=== PATIENT | female | born 1950 | race Caucasian/White ===

== ENCOUNTER 2017-07-30 17:41 | Emergency (ER) | payer MEDICARE, SELFPAY ==
[2017-07-30 17:42] VITALS: BP 160/88; PULSE 67; RESP 16; TEMP 36.6; O2SAT 96; BMI 22.8
[2017-07-30 17:59] VITALS: O2SAT 98
--- NOTE | 2017-07-30 18:09 | RAD_ITS ---
STUDY: X-RAY - LUMBAR SPINE REASON FOR EXAM: Female, 66 years old. Back pain after fall TECHNIQUE: 3 view(s) of the lumbar spine were obtained. COMPARISON: None FINDINGS: Normal lumbar lordosis. Slight dextrocurvature. There is a normal alignment of the vertebrae. Prominent degenerative disc disease at L4-5. Disc space height loss noted at L3-4. Prominent facet degenerative change from L3 through S1. The soft tissue structures are unremarkable. RAD/Lumbar Spine 2 or 3 Views IMPRESSION: Degenerative changes of the spine, as detailed above. Electronically Signed: Arun Traore DO at 18:33 EST Tel , Service support ,
--- NOTE | 2017-07-30 18:09 | RAD_ITS ---
STUDY: X-RAY - PELVIS REASON FOR EXAM: Female, 66 years old. Fall TECHNIQUE: One view of the pelvis was obtained. COMPARISON: None. FINDINGS: There is a non-specific bowel gas pattern. Normal visualized soft tissue structures. Normal bilateral iliac wings, sacroiliac joints and visualized sacrum. Normal visualized bilateral superior and inferior pubic rami. Normal pubic symphysis. Normal ischial tuberosities. Normal visualized right femoral head. Normal right acetabulum. Normal right hip joint. Normal visualized left femoral head. Normal left acetabulum. Normal left hip joint. RAD/Pelvis 1 or 2 Views IMPRESSION: Normal x-ray examination of the pelvis. Electronically Signed: Arun Traore DO at 18:35 EST Tel , Service support ,
--- NOTE | 2017-07-30 18:16 | RAD_ITS ---
STUDY: X-RAY - LEFT RADIUS AND ULNA REASON FOR EXAM: Female, 66 years old. Fall TECHNIQUE: 2 view(s) of the forearm. COMPARISON: None. FINDINGS: There is a subtle lucency in the distal radius which could represent small fracture versus unfused apophysis. Prominent degenerative change at the first carpometacarpal joint. Mild wrist soft tissue swelling RAD/Forearm 2 Views IMPRESSION: Possible small nondisplaced fracture of the distal radius with soft tissue swelling. Electronically Signed: Arun Traroe DO at 18:35 EST Tel , Service support ,
--- NOTE | 2017-07-30 19:15 | ED.DCSUM_ITS ---
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 Her states that she fell forward on the striking her nose but she maintains that she fell backwards striking her back. She also states that she had a very large mid forearm bruise on the left that was present when she fell but has now resolved. She states that her low buttock pain that she has now is chronic but this flared it up. She mentions no fewer than 5 times that she has severe fibromyalgia. She is in pain management. Physical Examination: Afebrile vital signs are stable Gen: Well-nourished well-developed Head: Normocephalic atraumatic Eyes: Perrl EOMI ENT: TMs clear no rhinorrhea moist mucous membranes Neck: Supple no lymphadenopathy no JVD nontender CVS: Regular rate rhythm no murmurs normal S1-S2 Respiratory: No distress clear to auscultation bilaterally chest nontender Abdomen: Soft nontender nondistended normal bowel sounds no masses Back: Tender to palpation over the lower lumbar sacral region. Extremity: I do not appreciate any visual outward signs of trauma involving the left arm. Patient reports tenderness to palpation over the mid forearm. She has normal pronation and supination. There are no breaks in the skin. Skin: Normal color no rash Neuro: alert orientated ?3 CN II-XII intact normal strength sensation reflexes gait cerebellar Test Results: Pelvis and LS-spine films did not demonstrate any acute fracture. Forearm films demonstrates a possible nondisplaced fracture of the distal radius. Emergency Department Course and Treatment: I reassessed the patient's forearm because the distal radius was not the site that she was complaining of pain of originally. When I asked specifically about the distal forearm she states yes it hurts and points to the ulna. When asked about the radial side she states yes she hurts there to. She then states that she cannot pronate and supinate like she did when she first came in. states that she seemed to be moving the forearm just fine when she initially fell as she was able to get up on her own. Patient states now she cannot pull up her own pants because of the wrist pain. I am not sure if this represents an actual fracture or not look clinically it is suspect. We will place her in a Velcro wrist splint and have her follow-up with her doctor in 7-10 days for repeat examination. She has oxycodone and anti-inflammatory medications at home. Impression: 1. Fall 2. Low back contusion 3. Left wrist sprain This note was generated with [employer] dictation software. It may contain incorrect words, spelling, and punctuation that were not noted in review of the chart prior to signing ED Disposition - Plan for ED Patient: Disposition: Home or Assisted Living Chief Complaint: Fall Instructions: ED Contusion Back, ED Mechanical Fall, ED Sprain Wrist Referrals: Maxwell Mabry DO [Primary Care Provider] - (in 10 days for repeat examination of wrist) Additional Instructions: The x-rays of your left wrist were inconclusive for radial fracture. Please wear the splint. Follow-up with your doctor in 10 days for repeat examination.
[2017-07-30 19:21] VITALS: BP 143/80; PULSE 62; RESP 16; O2SAT 95
== END 2017-07-30 19:21 | disposition home or self-care (01) ==
PROVIDERS: Emergency Provider Emergency Medicine; Family Provider Preventive Medicine Occupational Medicine; PCP Preventive Medicine Occupational Medicine
DX: S30.0XXA Contusion of lower back and pelvis, initial encounter (principal); S63.502A Unspecified sprain of left wrist, initial encounter; W07.XXXA Fall from chair, initial encounter; Y93.E9 Activity, other interior property and clothing maintenance; Y92.9 Unspecified place or not applicable; M79.7 Fibromyalgia; E78.00 Pure hypercholesterolemia, unspecified; E03.9 Hypothyroidism, unspecified; F32.9 Major depressive disorder, single episode, unspecified; Z79.899 Other long term (current) drug therapy; Z72.0 Tobacco use
CPT/HCPCS: 72100; 72170; 73090; 99283

== ENCOUNTER → 2017-09-03 12:17 | Outpatient (CLI) | payer MEDICARE, SELFPAY ==
--- NOTE | 2017-09-03 12:21 | HPBI_ITS ---
MAMMOGRAPHY - BILATERAL SCREENING REASON FOR EXAM: Female, 67 years old. Routine annual screening examination. PERTINENT HISTORY: Non-contributory. TECHNIQUE: Digital bilateral breast nicole (3D mammographic acquisition) in the CC and MLO projections. 2-D mediolateral oblique (MLO) and craniocaudad (CC) views of both breasts were obtained. CAD: Full Field Digital Mammography with Computer Added Detection was performed. COMPARISON: Comparison is made with prior examination to March 25, 2015 and March 24, 2013. FINDINGS: Breast Composition: The breasts are extremely dense, which lowers the sensitivity of mammography. There are no dominant masses or suspicious calcifications. No other significant abnormalities are identified. There has been no significant change since the prior study. HPBI/SCREENING MAMM (CAD), BILAT IMPRESSION: Stable bilateral screening mammogram. Yearly follow-up mammogram recommended. (A) ASSESSMENT CATEGORY: BIRADS Category 1: Negative. A letter regarding these results will be sent to the patient by the facility within 30 days. Approximately 10% of breast cancers are not detected by mammography. A normal mammogram should not delay biopsy of a clinically suspicious abnormality. [id number] Electronically Signed: Alexi Leslie MD at 14:00 EST Tel [phone], Service support ,
== END ==
PROVIDERS: Family Provider Preventive Medicine Occupational Medicine; PCP Preventive Medicine Occupational Medicine; Visit Provider Preventive Medicine Occupational Medicine
DX: Z12.31 Encounter for screening mammogram for malignant neoplasm of breast (principal)
CPT/HCPCS: 77063; 77067

== ENCOUNTER → 2019-08-15 14:08 | Outpatient (CLI) | payer MEDICARE, SELFPAY ==
--- NOTE | 2019-08-15 14:20 | BI_ITS ---
MAMMOGRAPHY - BILATERAL SCREENING REASON FOR EXAM: Female, 68 years old. Routine annual screening examination. PERTINENT HISTORY: Non-contributory. TECHNIQUE: Digital bilateral breast alayna (3D mammographic acquisition) in the CC and MLO projections. 2-D mediolateral oblique (MLO) and craniocaudad (CC) views of both breasts were obtained. CAD: Full Field Digital Mammography with Computer Added Detection was performed. COMPARISON: Comparison is made with prior examination dated September 03, 2017 and March 25, 2015. FINDINGS: Breast Composition: The breasts are heterogeneously dense, which may obscure small masses. There are no dominant masses or suspicious calcifications. No other significant abnormalities are identified. There has been no significant change since the prior study. BI/SCREEN MAMM (CAD) W/ALAYNA BILAT IMPRESSION: Stable bilateral screening mammogram. Yearly follow-up mammogram recommended. (A) ASSESSMENT CATEGORY: BIRADS Category 1: Negative. A letter regarding these results will be sent to the patient by the facility within 30 days. Approximately 10% of breast cancers are not detected by mammography. A normal mammogram should not delay biopsy of a clinically suspicious abnormality. [id number] Electronically Signed: Alexi Leslie, at 15:49 EST , Service support ,
== END ==
PROVIDERS: PCP Preventive Medicine Occupational Medicine; Referring Provider Preventive Medicine Occupational Medicine; Visit Provider Preventive Medicine Occupational Medicine
DX: Z12.31 Encounter for screening mammogram for malignant neoplasm of breast (principal)
CPT/HCPCS: 77063; 77067

== ENCOUNTER → 2020-09-09 10:31 | Outpatient (CLI) | payer MEDICARE, OTHER, SELFPAY ==
--- NOTE | 2020-09-09 10:50 | RAD_ITS ---
STUDY: X-RAY - LUMBAR SPINE REASON FOR EXAM: Female, 70 years old. LUMBOSACRAL SPONDYLOSIS WO MYELOPATHY TECHNIQUE: 5 view(s) of the lumbar spine were obtained. COMPARISON: None FINDINGS: There is straightening of the normal lumbar lordosis. There is mild scoliosis. There is multilevel endplate spondylosis of the lumbar vertebrae. There is multi-level degenerative disc disease with multi-level disc space narrowing. RAD/L/S Spine Min 4 Views IMPRESSION: Degenerative changes of the spine. Electronically Signed: Brennan Gordon MD at 12:44 EDT Tel , Service support ,
== END ==
PROVIDERS: PCP Preventive Medicine Occupational Medicine
DX: M47.817 Spondylosis without myelopathy or radiculopathy, lumbosacral region (principal)
CPT/HCPCS: 72110

== ENCOUNTER → 2021-02-26 13:54 | Outpatient (CLI) | payer MEDICARE, OTHER, SELFPAY ==
--- NOTE | 2021-02-26 13:57 | BI_ITS ---
MAMMOGRAPHY - BILATERAL SCREENING 3-D TOMOSYNTHESIS REASON FOR EXAM: Female, 70 years old. SCREENING PERTINENT HISTORY: No significant family history. TECHNIQUE: 2-D mammograms and 3-D Tomosynthesis of the breast (s) were performed. CAD was performed. COMPARISON: 08/15/2019 FINDINGS: The breast composition is Extermely dense tissue. Scattered benign calcifications are seen. No dense spiculated masses or suspicious microcalcifications are identified. No architectural distortion is identified. There is no skin thickening or retraction. There has been no significant change since the prior study. BI/SCRN MAMM (CAD)W/ALAYNA BILAT IMPRESSION: No mammographic signs of malignancy. Routine yearly mammograms recommended. ASSESSMENT CATEGORY: BIRADS Category 1: Negative. A letter regarding these results will be sent to the patient by the facility within 30 days. FOLLOW UP RECOMMENDATION: Yearly follow up mammogram recommended. (A) Approximately 10% of breast cancers are not detected by mammography. A normal mammogram should not delay biopsy of a clinically suspicious abnormality. Electronically Signed: Jaleel Costa MD at 15:09 EDT Tel , Service support ,
== END ==
PROVIDERS: PCP Preventive Medicine Occupational Medicine; Referring Provider Preventive Medicine Occupational Medicine; Visit Provider Preventive Medicine Occupational Medicine
DX: Z12.31 Encounter for screening mammogram for malignant neoplasm of breast (principal)
CPT/HCPCS: 77063; 77067

== ENCOUNTER 2021-10-16 09:01 | Inpatient (IN) | payer MEDICARE, OTHER, SELFPAY ==
[2021-10-16] VITALS (12 sets, daily range): BP systolic 88–156; BP diastolic 48–94; PULSE 87–101; RESP 12–19; TEMP 36.3–37.2; O2SAT 93–96; BMI 23.8
--- NOTE | 2021-10-16 09:18 | EX.ED.DYSGE1 ---
HPI <CESAR Naik - Last Filed: 10/16/21 10:52> History of Present Illness Chief Complaint: Diarrhea Narrative Narrative: 71-year-old female with history of depression, anxiety, hypertension, chronic back pain presents to the emergency department 3 to 4 days of continuous diarrhea. Patient denies any recent antibiotic use, fever or chills. Patient states that she has multiple episodes of diarrhea daily, it comes in waves and she states that sometimes he cannot make to the bathroom. Patient denies any blood in stool. Patient denies any fever or chills however does have pain to the left lower quadrant. Denies any history of any abdominal issues. Patient has low blood pressure on squad arrival, patient states that she is normally 140 systolic. Denies any dizziness, shortness of breath, chest pain. [facility] <CESAR Naik - Last Filed: 10/16/21 10:52> [facility] Medical History (Updated 10/16/21 @ 10:52 by CESAR Naik) Back pain Hypertension Home Medications amitriptyline 75 mg PO QHS 06/12/13 [History Last Taken Unknown] bisoprolol-hydrochlorothiazide 2 tab PO DAILY 06/12/13 [History Last Taken Unknown] clonazepam [Klonopin] 2 mg PO TID 06/12/13 [History Last Taken Unknown] levothyroxine 50 mcg PO DAILY 06/12/13 [History Last Taken Unknown] sertraline 100 mg PO DAILY 06/12/13 [History Last Taken Unknown] Duloxetine Hcl 60 mg PO DAILY 09/07/15 [History Last Taken Unknown] pravastatin 40 mg PO DAILY 09/07/15 [History Last Taken Unknown] Allergy/AdvReac Type Severity Reaction Status Date / Time amoxicillin [Amoxicillin] Allergy Hives Verified 10/16/21 09:11 Social History Smoking Status: Current every day smoker tobacco type: cigarettes ROS <CESAR Naik - Last Filed: 10/16/21 10:52> ROS ED ROS Narrative Constitutional: Negative for fever, chills, weight loss. Positive for weakness Eyes: Negative for vision loss, vision change, double vision ENT: Negative for any sore throat, ear pain, congestion Cardiovascular: Negative for any chest pain, tightness, palpitations, racing heartbeat Respiratory: Negative for any cough, sputum production, hemoptysis, shortness of breath, shortness of breath on exertion, orthopnea Gastrointestinal: Negative for any nausea, vomiting, constipation, blood in stool, blood in vomit. Positive for diarrhea, abdominal pain : Negative for any urinary frequency, incontinence, dysuria, retention, blood in urine Muscle skeletal: Negative for any muscle joint pain, stiffness, myalgias, arthralgias, neck pain, back pain Neurological: Negative for any headache, dizziness, syncope, numbness or tingling Skin: Negative for any rashes, lumps, itching, abrasions, lacerations Psychiatric: Negative for any depression, anxiety, stress, suicidal ideation, homicidal ideation Hematologic: Negative for any easy bruising, excessive bruising, easy bleeding Allergies: Negative for any eczema, hives, rash EXAM <CESAR Naik - Last Filed: 10/16/21 10:52> Physical Exam Narrative Exam Narrative: Vital signs reviewed. Patient alert and orient x4. Patient does look slightly disheveled today, she does have diarrhea on her socks. This is secondary to the urge to go and being unable to make it to the bathroom. HEET: Head normocephalic atraumatic, TMs clear bilaterally. Posterior pharynx is clear, dry mucous membranes. Nares clear bilaterally. Neck: Supple with no lymphadenopathy or tenderness. No signs of meningismus, negative jolt sign. Cardiac: Regular rate and rhythm no murmurs gallops or rubs, equal peripheral pulses bilaterally. Respiratory: Lungs clear to auscultation bilaterally. No chest tenderness. Abdomen: Soft, nondistended. No abdominal bruit or pulsatile masses. No hepatosplenomegaly. Patient does have left lower quadrant abdominal pain on examination. Extremities: No peripheral edema, no signs of gross trauma or deformity. Active full range of motion of all extremities. Neuro: Cranial nerves II through XII intact, no focal neurological deficits. Skin: Clean dry and intact with no rash, purpura, petechiae, vesicles or pustules. Backslash flank: No CVA tenderness, no midline spinal tenderness, no deformity. Psych: Normal mood and affect. No SI, HI or acute psychosis. Const Vital Signs: 10/16/21 09:07 10/16/21 09:12 10/16/21 09:43 Temperature 97.3 F L 97.3 F L Temperature Source Temporal Temporal Pulse Rate 91 94 89 Respiratory Rate 15 18 19 H Blood Pressure 98/53 L 88/66 L Blood Pressure Mean 68 73 Pulse Ox 93 93 Oxygen Delivery Method Room Air Room Air Positive well nourished and well developed General Appearance ED: well developed <Dr. Suyapa Argueta DO - Last Filed: 10/16/21 10:27> Physical Exam Const Vital Signs: 10/16/21 09:07 10/16/21 09:12 10/16/21 09:43 Temperature 97.3 F L 97.3 F L Temperature Source Temporal Temporal Pulse Rate 91 94 89 Respiratory Rate 15 18 19 H Blood Pressure 98/53 L 88/66 L Blood Pressure Mean 68 73 Pulse Ox 93 93 Oxygen Delivery Method Room Air Room Air MDM <CESAR Naik - Last Filed: 10/16/21 10:52> MDM MDM Narrative Medical decision making narrative: Patient appears dehydrated, patient's vital signs show some hypotension, patient presents the emergency department with diarrhea for 3 to 4 days. Patient did receive a full abdominal work-up, patient did receive 2 L of normal saline, IV Zofran, this did improve the patient's blood pressure. Patient did have a leukocytosis with a white blood count of 37.4, patient's electrolytes showed an acute kidney injury as well as hyponatremia at 134. Patient's creatinine was 2.88. Patient did receive a CT scan of the abdomen pelvis, this did show inflammation of the entire colon worrisome for pseudomembranous colitis or ulcerative colitis. Patient has no abscess or perforation. Patient will be empirically started on IV ciprofloxacin, Flagyl, she will be admitted to the hospital for further treatment. Patient is responding well to treatment, patient stable for admission. I did speak with the hospitalist, he would like me to hold the antibiotics until a stool culture is back. Patient is stable for MedSurg. Lab Data Labs: Laboratory Results - last 24 hr 10/16/21 10/16/21 10/16/21 09:21 09:21 09:21 WBC 37.4 H* RBC 4.05 L Hgb 13.3 Hct 40.8 MCV 100.7 H MCH 32.8 H MCHC 32.6 RDW Std Deviation 47.9 H RDW Coeff of Deanne 12.9 Plt Count 346 MPV 11.4 Immature Gran % (Auto) 3.000 H Neut % (Auto) 91.2 H Lymph % (Auto) 3.0 L [place] % (Auto) 2.5 Eos % (Auto) 0.1 Baso % (Auto) 0.2 Absolute Neuts (auto) 34.1 H Absolute Lymphs (auto) 1.12 Nucleated RBC % 0 [address] Review May foll Sodium 134 L Potassium 3.5 Chloride 103 Carbon Dioxide 22.0 Anion Gap 9 BUN 54 H Creatinine 2.88 H Estim Creat Clear Calc 14.61 Est GFR (MDRD) Af Amer 21 L Est GFR (MDRD) Non-Af 17 L BUN/Creatinine Ratio 18.8 Glucose 131 H Lactic Acid 2.0 Calcium 8.2 L Urine Color Urine Clarity Urine pH Ur Specific [place] U Specif Grav (Refrac) Urine Protein Urine Glucose (UA) Urine Ketones Urine Occult Blood Urine Nitrite Urine Bilirubin Urine Urobilinogen Ur Leukocyte Esterase Urine RBC Urine WBC Ur Squamous Epith Cells Ur Transition Epith Cell Ur Renal Epithelial Cell Calcium Oxalate Crystal Uric Acid Crystals Triple Phos Crystals Other Crystals Amorphous Sediment Urine Bacteria Hyaline Casts Fine Granular Casts Coarse Granular Casts Waxy Casts RBC Casts WBC Casts Urine Mucus Urine Trichomonas Urine Yeast 10/16/21 10/16/21 09:30 09:30 WBC RBC Hgb Hct MCV MCH MCHC RDW Std Deviation RDW Coeff of Deanne Plt Count MPV Immature Gran % (Auto) Neut % (Auto) Lymph % (Auto) [place] % (Auto) Eos % (Auto) Baso % (Auto) Absolute Neuts (auto) Absolute Lymphs (auto) Nucleated RBC % Diff Path Review Sodium Potassium Chloride Carbon Dioxide Anion Gap BUN Creatinine Estim Creat Clear Calc Est GFR (MDRD) Af Amer Est GFR (MDRD) Non-Af BUN/Creatinine Ratio Glucose Lactic Acid Calcium Urine Color Cancelled Yellow Urine Clarity Cancelled Clear Urine pH Cancelled 5.0 Ur Specific [place] Cancelled 1.020 U Specif Grav (Refrac) Cancelled Urine Protein Cancelled 15 H Urine Glucose (UA) Cancelled NEGATIVE Urine Ketones Cancelled Negative Urine Occult Blood Cancelled Negative Urine Nitrite Cancelled Negative Urine Bilirubin Cancelled Negative Urine Urobilinogen Cancelled Normal Ur Leukocyte Esterase Cancelled 2+ Urine RBC Cancelled Urine WBC Cancelled Ur Squamous Epith Cells Cancelled Ur Transition Epith Cell Cancelled Ur Renal Epithelial Cell Cancelled Calcium Oxalate Crystal Cancelled Uric Acid Crystals Cancelled Triple Phos Crystals Cancelled Other Crystals Cancelled Amorphous Sediment Cancelled Urine Bacteria Cancelled Hyaline Casts Cancelled Fine Granular Casts Cancelled Coarse Granular Casts Cancelled Waxy Casts Cancelled RBC Casts Cancelled WBC Casts Cancelled Urine Mucus Cancelled Urine Trichomonas Cancelled Urine Yeast Cancelled Radiography Diagnostic Testing: Clinical Impression(s) from Imaging Studies Abdomen/Pelvis CT 10/16/21 09:44 IMPRESSION: Inflammation of the entire colon worrisome for pseudomembranous colitis or ulcerative colitis. No abscess or perforation. Electronically Signed: Jaleel Costa MD at 10:23 EDT , <Dr. Suyapa Argueta, DO - Last Filed: 10/16/21 10:27> [facility] MDM Narrative Medical decision making narrative: I have personally performed a face to face assessment of the patient and have reviewed the CANDIS Note. I performed a substantive portion of the visit including all aspects of the following. My ace findings include: History is [patient presents with 4 days of diarrhea. Patient states every time she tries to stand up she has diarrhea and its watery. She denies any blood in her stool. She denies fevers. She describes some abdominal discomfort to the left lower quadrant. Denies sick contacts. No recent antibiotic usage. No recent travel out of the country. Patient's had some mild nausea but no vomiting.] Exam is [HEENT-PERRLA, EOMI. Cranial nerves II through XII grossly intact. TMs clear. Mucous membranes dry. No adenopathy. Cardiovascular-regular rate and rhythm without murmur or ectopy Lungs-clear to auscultation, chest wall stable without crepitus or subcu emphysema Abdomen-normoactive bowel sounds, soft. Patient is tenderness to palpation over left lower quadrant with some guarding. There is no rebound, rigidity, or cranial signs. Extremities-intact ?4, normal range of motion, normal pulses, atraumatic] Medical Decison Making [IV line established on arrival. Patient was ordered 2 L of normal saline. Patient noted to have a severe leukocytosis with inflammatory changes in the entire colon on CT which may represent pseudomembranous colitis or inflammatory bowel disease. Patient's not had any history of inflammatory bowel disease or bloody stools. Stool was sent for C. difficile as well as enteric pathogens. She was started empirically on Cipro and Flagyl. Case will be discussed with hospitalist evaluate for admission. Patient did respond to fluids.] Other additions or changes: [None] Lab Data Labs: Laboratory Results - last 24 hr 10/16/21 10/16/21 10/16/21 09:21 09:21 09:21 WBC 37.4 H* RBC 4.05 L Hgb 13.3 Hct 40.8 MCV 100.7 H MCH 32.8 H MCHC 32.6 RDW Std Deviation 47.9 H RDW Coeff of Deanne 12.9 Plt Count 346 MPV 11.4 Immature Gran % (Auto) 3.000 H Neut % (Auto) 91.2 H Lymph % (Auto) 3.0 L [place] % (Auto) 2.5 Eos % (Auto) 0.1 Baso % (Auto) 0.2 Absolute Neuts (auto) 34.1 H Absolute Lymphs (auto) 1.12 Nucleated RBC % 0 [address] Review May foll Sodium 134 L Potassium 3.5 Chloride 103 Carbon Dioxide 22.0 Anion Gap 9 BUN 54 H Creatinine 2.88 H Estim Creat Clear Calc 14.61 Est GFR (MDRD) Af Amer 21 L Est GFR (MDRD) Non-Af 17 L BUN/Creatinine Ratio 18.8 Glucose 131 H Lactic Acid 2.0 Calcium 8.2 L Urine Color Urine Clarity Urine pH Ur Specific [place] U Specif Grav (Refrac) Urine Protein Urine Glucose (UA) Urine Ketones Urine Occult Blood Urine Nitrite Urine Bilirubin Urine Urobilinogen Ur Leukocyte Esterase Urine RBC Urine WBC Ur Squamous Epith Cells Ur Transition Epith Cell Ur Renal Epithelial Cell Calcium Oxalate Crystal Uric Acid Crystals Triple Phos Crystals Other Crystals Amorphous Sediment Urine Bacteria Hyaline Casts Fine Granular Casts Coarse Granular Casts Waxy Casts RBC Casts WBC Casts Urine Mucus Urine Trichomonas Urine Yeast 10/16/21 10/16/21 09:30 09:30 WBC RBC Hgb Hct MCV MCH MCHC RDW Std Deviation RDW Coeff of Deanne Plt Count MPV Immature Gran % (Auto) Neut % (Auto) Lymph % (Auto) [place] % (Auto) Eos % (Auto) Baso % (Auto) Absolute Neuts (auto) Absolute Lymphs (auto) Nucleated RBC % Diff Path Review Sodium Potassium Chloride Carbon Dioxide Anion Gap BUN Creatinine Estim Creat Clear Calc Est GFR (MDRD) Af Amer Est GFR (MDRD) Non-Af BUN/Creatinine Ratio Glucose Lactic Acid Calcium Urine Color Cancelled Yellow Urine Clarity Cancelled Clear Urine pH Cancelled 5.0 Ur Specific [place] Cancelled 1.020 U Specif Grav (Refrac) Cancelled Urine Protein Cancelled 15 H Urine Glucose (UA) Cancelled NEGATIVE Urine Ketones Cancelled Negative Urine Occult Blood Cancelled Negative Urine Nitrite Cancelled Negative Urine Bilirubin Cancelled Negative Urine Urobilinogen Cancelled Normal Ur Leukocyte Esterase Cancelled 2+ Urine RBC Cancelled Urine WBC Cancelled Ur Squamous Epith Cells Cancelled Ur Transition Epith Cell Cancelled Ur Renal Epithelial Cell Cancelled Calcium Oxalate Crystal Cancelled Uric Acid Crystals Cancelled Triple Phos Crystals Cancelled Other Crystals Cancelled Amorphous Sediment Cancelled Urine Bacteria Cancelled Hyaline Casts Cancelled Fine Granular Casts Cancelled Coarse Granular Casts Cancelled Waxy Casts Cancelled RBC Casts Cancelled WBC Casts Cancelled Urine Mucus Cancelled Urine Trichomonas Cancelled Urine Yeast Cancelled Radiography Diagnostic Testing: Clinical Impression(s) from Imaging Studies Abdomen/Pelvis CT 10/16/21 09:44 IMPRESSION: Inflammation of the entire colon worrisome for pseudomembranous colitis or ulcerative colitis. No abscess or perforation. Electronically Signed: Jaleel Costa MD at 10:23 EDT Reading Location ID and State: [address] [place] [address] Tel , Service support , Discharge Plan Triage Chief Complaint: Diarrhea ED Midlevel Provider: Florencio Victoria ED Provider: Suyapa Argueta Dx/Rx/DC Orders Clinical Impression: Diarrhea, Dehydration, Acute kidney injury Prescriptions: No Action sertraline 100 MG tablet 100 mg PO DAILY RF: 0 bisoprolol-hydrochlorothiazide 1 TAB tablet 2 tab PO DAILY RF: 0 amitriptyline 50 MG tablet 75 mg PO QHS RF: 0 levothyroxine 25 MCG tablet 50 mcg PO DAILY RF: 0 clonazepam [Klonopin] 2 MG tablet 2 mg PO TID RF: 0 pravastatin 40 MG tablet 40 mg PO DAILY RF: 0 Duloxetine Hcl 60 mg PO DAILY RF: 0 Primary Care Provider: Maxwell Mabry Referrals: Maxwell Mabry DO [Primary Care Provider] - Disposition Disposition: Acute Care Hospital [facility]
[2021-10-16] MEDS: 0.9% Normal Saline 1,000 ML 1000 ML IV ×2 (09:22→10:26)
[2021-10-16] MEDS: Ondansetron 4 MG/2 ML Vial IV ×3 (09:22→23:19)
[2021-10-16 09:30] LABS: Absolute Lymphocyte Count 1.12 X10^3/uL (0.83-4.51); Absolute Neutrophil Count 34.1 X10^3/uL (2.0-7.7); Basophil# 0.08 X10^3/uL; Basophil% 0.2 % (0-1); Eosinophil# 0.02 X10^3/uL; Eosinophils% 0.1 % (0-5); Hematocrit 40.8 % (37-47); Hemoglobin 13.3 g/dL (12.0-15.0); Lymphocyte # 1.12 X10^3/ul (0.83-4.51); Mean Corp Hgb Conc 32.6 g/dL (32-36); Mean Corpuscular Hgb 32.8 pg (27.0-32.0); Mean Corpuscular Volume 100.7 fL (81-99); Mean Platelet Vol. 11.4 fl (6.2-12.0); Monocyte# 0.95 X10^3/uL; Monocyte% 2.5 % (0-10); NRBC Flagged by Analyzer 0 % (0-5); Neutrophil # 34.08 X10^3/uL (2.7-7.7); Neutrophil % 91.2 % (47-70); POSITIVE COUNT YES; POSITIVE DIFFERENTIAL YES; POSITIVE MORPHOLOGY YES; Platelet Count 346 K/mm3 (150-450); RBC Distribution Width CV 12.9 % (11.6-14.6); RBC Distribution Width SD 47.9 fl (35.1-43.9); Red Blood Count 4.05 M/mm3 (4.2-5.4); White Blood Count 37.4 K/mm3 (4.4-11.0)
[2021-10-16 09:40] LABS: Differential Indicated SCAN CRITERIA MET
[2021-10-16 09:42] LABS: Anion Gap 9 (5-15); BUN 54 mg/dL (7-18); BUN/Creat Ratio 18.8 RATIO (10-20); Calcium,Total 8.2 mg/dL (8.5-10.1); Chloride 103 mmol/L (98-107); Creatinine, Serum 2.88 mg/dL (0.55-1.02); EST Glomerular Filtration Rate 17 mL/min (>60); Est Glom Filt Rate - Afr Amer 21 mL/min (>60); Estimated Creatinine Clearance 14.61 ml/min; Glucose 131 mg/dL (74-106); Potassium 3.5 mmol/L (3.5-5.1); Sodium Level 134 mmol/L (136-145)
--- NOTE | 2021-10-16 09:44 | CT_ITS ---
STUDY: CT ABDOMEN AND PELVIS WITHOUT CONTRAST REASON FOR EXAM: Female, 71 years old. Pain RADIATION DOSAGE (If Supplied By Facility): CTDIvol = ( 6.13 ) mGy, DLP = ( 275.78 ) mGycm TECHNIQUE: Transaxial images were obtained from the dome of the diaphragm to the symphysis pubis without oral contrast, and without intravenous contrast. Sagittal and coronal images were reconstructed. Individualized dose optimization techniques were used for this CT. COMPARISON: None. FINDINGS: The visualized lung bases are unremarkable. The visualized portions of the heart are within normal limits. Small Bochdalek hernia on the right containing fat. Normal liver. Normal gallbladder and extrahepatic biliary system. Normal spleen. Normal pancreas. Normal bilateral adrenal glands. Normal right kidney. Normal left kidney. Normal visualized stomach. Normal small intestine. Severe wall thickening with stranding in the surrounding fat of the entire colon consistent with colitis, likely pseudomembranous colitis or ulcerative colitis. No loculated fluid collection to cyst abscess. No pneumoperitoneum to suggest perforation. The appendix is visualized and appears normal. Normal abdominal aorta. Normal inferior vena cava. Normal retroperitoneum. Normal urinary bladder. Normal abdominal wall. Mild dextroscoliosis of the lumbar spine with degenerative disc disease. Spinal stimulator in the right buttock. CT/Abdomen/Pelvis without Cont IMPRESSION: Inflammation of the entire colon worrisome for pseudomembranous colitis or ulcerative colitis. No abscess or perforation. Electronically Signed: Jaleel Costa MD at 10:23 EDT ,
[2021-10-16 09:46] LABS: Color, Urine Yellow (Yellow)
[2021-10-16 09:47] LABS: Glucose, Dipstick NEGATIVE (Normal); Ketone-Dipstick Negative (Negative); Leukocyte Esterase-Dipstick 2+ /ul (Negative); Nitrite-Dipstick Negative (Negative); Protein-Dipstick 15 mg/dl (Negative); Urine Bilirubin Dipstick Negative (Negative); Urine Clarity Clear (Clear); Urine Urobilinogen Normal (Normal)
[2021-10-16 09:48] LABS: Occult Blood-Urine Negative /ul (Negative)
[2021-10-16 11:07] LABS: AST(SGOT) 13 U/L (15-37); Alanine Aminotransfer ALT/SGPT 7 U/L (13-56); Albumin, Serum 2.5 g/dL (3.2-5.0); Alkaline Phosphatase 135 U/L (45-117); Bilirubin, Direct 0.14 mg/dL (0.00-0.30); Globulin 4.3 g/dL (2.2-4.2); Magnesium 1.9 mg/dL (1.6-2.6); Phosphorus 3.9 mg/dL (2.5-4.9); Protein, Total 6.8 g/dL (6.4-8.2)
--- NOTE | 2021-10-16 11:19 | PCM.HP.STD ---
HPI - General General Date of Admission: 10/16/21 Date of Service: 10/16/21 Chief Complaint: Diarrhea and abdominal pain for 4 days HPI Narrative TEMITOPE ALMAZAN, is a 71 F with no significant prior GI problem/chronic disease came to ED for sudden onset of diarrhea for 4 days. She states whenever she eats she gets loose watery bowel movement it is every 1 or 2 hours. She also has abdominal pain mainly over left side of abdomen diffuse, nonspecific. She has mild nausea and dry heaving but no vomiting. Her stool is liquid in consistency, greenish dark in color, seen in ED. She denies any recent antibiotic intake. She had surgery of back with neurostimulator 3 weeks ago. Patient denies fever chills malaise hypotension in ED blood pressure 88/66, volume resuscitated and blood pressure last 128/87. No tachycardia. Leukocytosis to 37.4 thousand, mildly neutrophil 91.2%. Elevated BUN/creatinine discussed in assessment plan. Lactic acid normal. She had CT abdomen without oral and IV contrast reported severe wall thickening with stranding in the surrounding fat of entire colon consistent with colitis likely pseudomonal colitis ulcerative colitis. No loculated fluid collection or cyst abscess. No pneumoperitoneum/perforation. Patient had 2 L of IV fluid normal saline bolus and admitted She is a chronic smoker smokes about a pack per day since age of 25. [facility] Medical History Back pain Hypertension Home Medications amitriptyline 75 mg PO QHS 06/12/13 [History Last Taken Unknown] bisoprolol-hydrochlorothiazide 2 tab PO DAILY 06/12/13 [History Last Taken Unknown] clonazepam [Klonopin] 2 mg PO TID 06/12/13 [History Last Taken Unknown] levothyroxine 50 mcg PO DAILY 06/12/13 [History Last Taken Unknown] sertraline 100 mg PO DAILY 06/12/13 [History Last Taken Unknown] Duloxetine Hcl 60 mg PO DAILY 09/07/15 [History Last Taken Unknown] pravastatin 40 mg PO DAILY 09/07/15 [History Last Taken Unknown] Allergy/AdvReac Type Severity Reaction Status Date / Time amoxicillin [Amoxicillin] Allergy Hives Verified 10/16/21 09:11 Social History Smoking Status: Current every day smoker tobacco type: cigarettes ROS ROS Narrative Constitutional: Reports fatigue and weakness. No fever. Dehydrated HEENT: Reports systems reviewed and no addt'l complaints, except as documented Respiratory/Chest: Denies chest pain, shortness of breath at rest or with exertion Gastrointestinal: Denies coffee ground emesis, hematemesis or vomiting. Rest as mentioned in HPI Genitourinary: Urine dark yellow. Denies burning urination or new urinary tract symptoms Musculoskeletal: Chronic bilateral thigh/buttock and back pain. Reports joint pain and limited range of motion Neurologic: Recent back surgery with neurostimulator. Denies seizure-like activity skin: No ulcer. No rash Endocrinology: Reports systems reviewed and no addt'l complaints, except as documented Hematologic/Lymphatic: Reports systems reviewed and no addt'l complaints, except as documented Rest 14 ROS are negative except as mentioned in HPI Vital Signs Vital Signs Vital Signs: 10/16/21 09:07 10/16/21 09:12 10/16/21 09:43 Temperature 97.3 F L 97.3 F L Temperature Source Temporal Temporal Pulse Rate 91 94 89 Respiratory Rate 15 18 19 H Blood Pressure 98/53 L 88/66 L Blood Pressure Mean 68 73 Pulse Ox 93 93 Oxygen Delivery Method Room Air Room Air 10/16/21 11:11 10/16/21 11:12 Temperature 97.3 F L Temperature Source Temporal Pulse Rate 88 87 Respiratory Rate 12 12 Blood Pressure 128/87 H 128/87 H Blood Pressure Mean 100 100 Pulse Ox 93 93 Oxygen Delivery Method Room Air Room Air Weight Weight: 134 lb 4.184 oz Body Mass Index (BMI) 23.8 Physical Exam Narrative General: Alert, Oriented x3, Cooperative HEENT: Atraumatic, PERRLA, EOMI, Normocephalic Oral: Oral mucosa dry no Gingival or Mucosal Lesions/ Ulcerations Neck: Supple, No JVD, Negative Carotid Bruits Lungs: Air entry diminished in bilateral lung bases. No crepitation/rhonchi Cardiovascular: Regular rate, Regular Rhythm, Normal S1, Normal S2, No murmurs Abdomen: Soft, tenderness present all over predominantly over the left upper quadrant. No guarding/rigidity. Bowel Sounds Present. Non-Distended. No palpable mass : Dark urine. No renal angle tenderness. No suprapubic tenderness. Extremities: No edema, Capillary Refill Less than 3 Seconds Skin: No rashes, No breakdown Musculoskeletal: Tenderness present over lower spine and bilateral thigh. Surgical scar over the lumbar area. Neurostimulator over right iliac region. ROM restricted. Neurological: Cranial nerves II-XII grossly intact, DTR 2+/4. Muscle strength 4/5 at major joints in lower extremities Psych/Mental Status: Flat affect anxious. Results Lab / Micro Data Result Diagrams: 10/16/21 09:21 10/16/21 09:21 Labs: Laboratory Results - last 24 hr 10/16/21 09:21: WBC 37.4 H*, RBC 4.05 L, Hgb 13.3, Hct 40.8, MCV 100.7 H, MCH 32.8 H, MCHC 32.6, RDW Std Deviation 47.9 H, RDW Coeff of Deanne 12.9, Plt Count 346, MPV 11.4, Immature Gran % (Auto) 3.000 H, Neut % (Auto) 91.2 H, Lymph % (Auto) 3.0 L, [place] % (Auto) 2.5, Eos % (Auto) 0.1, Baso % (Auto) 0.2, Absolute Neuts (auto) 34.1 H, Absolute Lymphs (auto) 1.12, Nucleated RBC % 0, Diff Path Review October10/16/21 09:21: Sodium 134 L, Potassium 3.5, Chloride 103, Carbon Dioxide 22.0, Anion Gap 9, BUN 54 H, Creatinine 2.88 H, Estim Creat Clear Calc 14.61, Est GFR (MDRD) Af Amer 21 L, Est GFR (MDRD) Non-Af 17 L, BUN/Creatinine Ratio 18.8, Glucose 131 H, Calcium 8.2 L 10/16/21 09:21: Lactic Acid 2.0 10/16/21 09:21: Phosphorus 3.9, Magnesium 1.9, Total Bilirubin 0.20, Direct Bilirubin 0.14, AST 13 L, ALT 7 L, Alkaline Phosphatase 135 H, Total Protein 6.8, Albumin 2.5 L, Globulin 4.3 H 10/16/21 09:30: Urine Color Yellow, Urine Clarity Clear, Urine pH 5.0, Ur Specific [place] 1.020, Urine Protein 15 H, Urine Glucose (UA) NEGATIVE, Urine Ketones Negative, Urine Occult Blood Negative, Urine Nitrite Negative, Urine Bilirubin Negative, Urine Urobilinogen Normal, Ur Leukocyte Esterase 2+ Radiology Impression Abdomen/Pelvis CT 10/16/21 09:44 IMPRESSION: Inflammation of the entire colon worrisome for pseudomembranous colitis or ulcerative colitis. No abscess or perforation. Assessment & Plan Assessment/Plan (1) Acute kidney injury: (2) Dehydration: PLAN: 71-year-old female admitted with 4 days history of diarrhea and abdominal pain. 1. Sepsis due to acute infectious colitis, exact etiology unclear with hypotension: [facility]. Patient had hypotension in ED along with heart rate more than 90, leukocytosis with left shift/immature granulocytes and elevated creatinine suggestive of organ dysfunction of kidney and GI. CT abdomen individually reviewed and shows inflammation of entire colon concerning for pseudomembranous colitis or ulcerative colitis with inflammatory stranding and surrounding pericolonic fat. No abscess/perforation. Stool for occult blood positive. Stool for enteric bacteriology panel and C. difficile ordered. Patient is started on IV Cipro and Flagyl. Hypotension improved in ED. Lactic acid 2.0. Continue IV fluid Ringer lactate 200 mL/h. 2. GERD possible lower GI bleed: Stool for occult blood positive. Patient is having acid reflux and nausea sensation but no vomiting. No external hematemesis melena or hematochezia. Consult electronic security specialist although colonoscopy is contraindicated in infectious colitis. IV Protonix 40 Mg daily. NSAIDs and anticoagulants contraindicated. PT/INR ordered 3. Acute kidney injury on CKD stage IV most likely prerenal but may progress to ATN: Patient baseline creatinine is 1.75-1.98. Patient admitted with creatinine 2.88. IV fluid resuscitation. Monitor intake and output. Bladder scan every 4 hourly. If patient gets urine retention, straight catheterization. 4. 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 5. Hypertension: Patient recovering from hypotension. Hold antihypertensive medication, bisoprolol HCTZ 6. Hypothyroidism continue levothyroxine. DVT prophylaxis: Pharmacological prophylaxis currently. Bilateral SCDs Living will/advanced directive/end of life care: Patient does not have living will or advanced directive. After discussion of benefits/risks procedures involved with full code, DNR CC arrest and DNR CC, the patient opted for DNRCC arrest with no intubation. Patient doesn't want artificial life support including intubation, tube feed, ventilator and/chest compression, central venous catheter, vasopressor and DC shock if needed Total time spent in [id number] encounter in discussion of advanced directive 16 minutes. Charges/Coding Visit Charges Inpatient E&M: 97402 Init Hosp L3 Procedures Hospitalists Procedures: 85856 Advncd Care Plan 30 Min
[2021-10-16 12:04] LABS: International Normalized Ratio 1.3; Prothrombin Time (Protime)PT. 15.5 SECONDS (11.7-14.9)
--- NOTE | 2021-10-16 12:08 | US_ITS ---
STUDY: ABDOMINAL ULTRASOUND - RIGHT UPPER QUADRANT REASON FOR VISIT: Female, 71 years old cirrhosis TECHNIQUE: Ultrasound evaluation of the right upper quadrant was performed with real-time and static valencia-scale imaging. TECHNICAL QUALITY: Adequate. COMPARISON: CT scan of the pelvis obtained on 10/16/2021.. FINDINGS: Liver: The liver measures 16.5 cm. There is normal echogenicity of the liver. Mild lobulation of the contour of the liver is seen. The bile ducts are within normal limits. There is hepatic color flow. The direction of portal flow is hepatopetal. There is no demonstrated mass lesion. Gallbladder: Normal distended gallbladder. The gallbladder wall measures 3 mm. There is a negative sonographic Whelan''s sign. There is no pericholecystic fluid. There are no gallstones. Common Bile Duct (C.B.D.): The common bile duct measures 8 mm. Pancreas: Normal size of the head, body and tail of the pancreas. There is normal echogenicity of the pancreas. There is no demonstrated pancreatic mass or cyst. Right Kidney: The right kidney demonstrates increased echogenicity and mild lobulation of its contour. The right kidney measures 8.3 x 3.4 x 3.6 cm. Normal renal cortex. The right cortex measures 2.4 cm. There is no demonstrated renal mass or cyst. There is no right hydronephrosis. US/Liver IMPRESSION: Increased echogenicity of the kidneys suggestive of medical renal disease. Electronically Signed: Kenneth Ortiz MD at 16:02 EDT ,
[2021-10-16] MEDS: Lactated Ringers 1,000 ML 200 ML IV (12:25)
[2021-10-16] MEDS: Vancomycin 125 MG/5 ML Susp PO.SYRINGE PO ×2 (12:34→18:05)
--- NOTE | 2021-10-16 13:12 | EX.PCM.CON.G ---
HPI Consult Data Date of Consult: 10/16/21 HPI Narrative HPI Narrative: TEMITOPE ALMAZAN, is a 71 F who presents to the ED with worsening abdominal pain. She is also been having progressive nausea vomiting and diarrhea that started on Wednesday. She recently had a neurostimulator placed in her back for back pain 3 weeks ago. She was found to have a follow-up visit yesterday. However since she has been having a lot of diarrhea she did not have a follow-up appointment. She does not have any family in the area. She makes her own decisions and is her own power of collections attorney. She called EMS due to weakness associated with nausea vomiting and diarrhea. In the ED she was discovered to be afebrile, normotensive. In the ED she had 2 episodes of diarrhea. Her biochemical analysis had showed significant leukocytosis with a white blood cell count of 37,000, elevated BUN/creatinine ratio of 54/2.88. She says that she not have a history of chronic kidney disease. She does have a history of chronic pain secondary to rheumatoid arthritis and does take pain medicine on a daily basis. She had CT abdomen without oral and IV contrast reported severe wall thickening with stranding in the surrounding fat of entire colon consistent with colitis likely pseudomonal colitis versus ulcerative colitis. No loculated fluid collection or cyst abscess. No pneumoperitoneum/perforation. . PFSH Medical History Anxiety Back pain Chronic pain Hypertension Migraines Rheumatoid arthritis Smoker Home Medications amitriptyline 75 mg PO QHS 06/12/13 [History Last Taken Unknown] bisoprolol-hydrochlorothiazide 2 tab PO DAILY 06/12/13 [History Last Taken Unknown] clonazepam [Klonopin] 2 mg PO TID 06/12/13 [History Last Taken Unknown] levothyroxine 50 mcg PO DAILY 06/12/13 [History Last Taken Unknown] sertraline 100 mg PO DAILY 06/12/13 [History Last Taken Unknown] Duloxetine Hcl 60 mg PO DAILY 09/07/15 [History Last Taken Unknown] pravastatin 40 mg PO DAILY 09/07/15 [History Last Taken Unknown] Allergy/AdvReac Type Severity Reaction Status Date / Time amoxicillin [Amoxicillin] Allergy Hives Verified 10/16/21 09:11 Social History Smoking Status: Current every day smoker tobacco type: cigarettes ROS Gastrointestinal Gastrointestinal: Reports diarrhea, nausea and vomiting Physical Exam Const alert General Appearance: cooperative Orientation / Consciousness: oriented to person HEENT hearing grossly normal bilaterally Head and Scalp: normal to inspection Face and Sinus: face symmetric Nose: external nose normal Mouth: oral and palatal mucosa normal Eyes conjunctivae normal General Eye: normal appearance of both eyes Neck full ROM General: normal visual inspection Lymph Lymphatic: no lymphadenopathy noted Chest inspection of chest normal and palpation of chest normal Chest: symmetrical chest wall rise Resp normal respiratory effort Effort and Inspection: able to speak in complete sentences Cardio regular rate GI non-distended Percussion: normal to percussion Rectal Exam: deferred Neuro Speech: speech normal Lab / Micro Data Result Diagrams: 10/16/21 09:21 10/16/21 09:21 Labs: Laboratory Results - last 24 hr 10/16/21 09:21: WBC 37.4 H*, RBC 4.05 L, Hgb 13.3, Hct 40.8, MCV 100.7 H, MCH 32.8 H, MCHC 32.6, RDW Std Deviation 47.9 H, RDW Coeff of Deanne 12.9, Plt Count 346, MPV 11.4, Immature Gran % (Auto) 3.000 H, Neut % (Auto) 91.2 H, Lymph % (Auto) 3.0 L, [place] % (Auto) 2.5, Eos % (Auto) 0.1, Baso % (Auto) 0.2, Absolute Neuts (auto) 34.1 H, Absolute Lymphs (auto) 1.12, Nucleated RBC % 0, Diff Path Review October10/16/21 09:21: Sodium 134 L, Potassium 3.5, Chloride 103, Carbon Dioxide 22.0, Anion Gap 9, BUN 54 H, Creatinine 2.88 H, Estim Creat Clear Calc 14.61, Est GFR (MDRD) Af Amer 21 L, Est GFR (MDRD) Non-Af 17 L, BUN/Creatinine Ratio 18.8, Glucose 131 H, Calcium 8.2 L 10/16/21 09:21: Lactic Acid 2.0 10/16/21 09:21: Phosphorus 3.9, Magnesium 1.9, Total Bilirubin 0.20, Direct Bilirubin 0.14, AST 13 L, ALT 7 L, Alkaline Phosphatase 135 H, Total Protein 6.8, Albumin 2.5 L, Globulin 4.3 H 10/16/21 09:21: PT 15.5 H, INR 1.3 10/16/21 09:30: Urine Color Cancelled, Urine Clarity Cancelled, Urine pH Cancelled, Ur Specific [place] Cancelled, U Specif Grav (Refrac) Cancelled, Urine Protein Cancelled, Urine Glucose (UA) Cancelled, Urine Ketones Cancelled, Urine Occult Blood Cancelled, Urine Nitrite Cancelled, Urine Bilirubin Cancelled, Urine Urobilinogen Cancelled, Ur Leukocyte Esterase Cancelled, Urine RBC Cancelled, Urine WBC Cancelled, Ur Squamous Epith Cells Cancelled, Ur Transition Epith Cell Cancelled, Ur Renal Epithelial Cell Cancelled, Calcium Oxalate Crystal Cancelled, Uric Acid Crystals Cancelled, Triple Phos Crystals Cancelled, Other Crystals Cancelled, Amorphous Sediment Cancelled, Urine Bacteria Cancelled, Hyaline Casts Cancelled, Fine Granular Casts Cancelled, Coarse Granular Casts Cancelled, Waxy Casts Cancelled, RBC Casts Cancelled, WBC Casts Cancelled, Urine Mucus Cancelled, Urine Trichomonas Cancelled, Urine Yeast Cancelled 10/16/21 09:30: Urine Color Yellow, Urine Clarity Clear, Urine pH 5.0, Ur Specific [place] 1.020, Urine Protein 15 H, Urine Glucose (UA) NEGATIVE, Urine Ketones Negative, Urine Occult Blood Negative, Urine Nitrite Negative, Urine Bilirubin Negative, Urine Urobilinogen Normal, Ur Leukocyte Esterase 2+ Micro: Microbiology 10/16/21 11:03 Stool Stool Lactoferrin - Final 10/16/21 11:03 Stool Stool Occult Blood (SUJIT) - Final Occult Blood Positive Radiology Impression Abdomen/Pelvis CT 10/16/21 09:44 IMPRESSION: Inflammation of the entire colon worrisome for pseudomembranous colitis or ulcerative colitis. No abscess or perforation. Electronically Signed: Jaleel Costa MD at 10:23 EDT , Assessment & Plan Assessment/Plan (1) Diarrhea: PLAN: The gnosis for diarrhea does include a secretory diarrhea secondary to infectious colitis, ischemic colitis, Crohn's colitis. Awaiting stool studies to see if she is positive for C. difficile or enteric pathogens. Stool culture was also sent. Recommend to check ESR, CRP, LDH, lactic acid. If the stool studies are negative then she will need a colonoscopy. At this time she is having nausea vomiting so I do not think she can tolerate a prep. Also noted with her liver seems to be smaller and possibly nodular on CT scan. Recommend ultrasound of the right upper quadrant to look for signs of cirrhosis. She also appears to be possibly encephalopathic. Recommend to check an ammonia level. Recommend empiric vancomycin oral and IV Flagyl. After stool studies return and ultrasound will have further recommendations. Charges/Coding Visit Charges Inpatient E&M: 93312 Init Hosp L3
[2021-10-16 13:27] LABS: Reflex Lactate? Y
[2021-10-16] MEDS: Metoclopramide 10 MG/2 ML Vial 5 MG IV (13:36)
[2021-10-16] MEDS: 0.9% Saline Lock 10 ML Syringe IV ×3 (13:36→23:19)
[2021-10-16 14:10] LABS: Erythrocyte Sedimentation Rate 69 mm/hr (0-30)
[2021-10-16 14:16] LABS: LDH 176 U/L (84-246)
[2021-10-16 14:50] LABS: Ammonia < 10.0 umol/L (11-32); Lactic Acid 1.9 mmol/L (0.4-1.9)
[2021-10-16] MEDS: clonazePAM 1 MG Tablet 2 MG PO ×2 (15:22→21:14)
[2021-10-16] MEDS: oxyCODONE 5 MG Tablet PO (18:05)
[2021-10-16] MEDS: Acetaminophen 325 MG Tablet 650 MG PO (18:05)
[2021-10-16] MEDS: Ipratropium/Albuterol Sulfate 3 ML AMPUL.NEB INHALATION (19:27)
[2021-10-16] MEDS: Amitriptyline 25 MG Tablet 50 MG PO (21:14)
[2021-10-17] VITALS (13 sets, daily range): BP systolic 128–156; BP diastolic 72–126; PULSE 104–117; RESP 16–18; TEMP 36.4–37.3; O2SAT 93–100
[2021-10-17] MEDS: Vancomycin 125 MG/5 ML Susp PO.SYRINGE PO ×2 (01:04→06:38)
[2021-10-17] MEDS: Lactated Ringers 1,000 ML 100 ML IV (02:41)
[2021-10-17 06:29] LABS: Absolute Lymphocyte Count 0.88 X10^3/uL (0.83-4.51); Absolute Neutrophil Count 31.4 X10^3/uL (2.0-7.7); Basophil# 0.05 X10^3/uL; Basophil% 0.1 % (0-1); Eosinophil# 0.03 X10^3/uL; Eosinophils% 0.1 % (0-5); Hematocrit 37.6 % (37-47); Hemoglobin 12.4 g/dL (12.0-15.0); Lymphocyte # 0.88 X10^3/ul (0.83-4.51); Lymphocyte % 2.6 % (19-41); Mean Corpuscular Hgb 32.8 pg (27.0-32.0); Mean Corpuscular Volume 99.5 fL (81-99); Mean Platelet Vol. 11.2 fl (6.2-12.0); Monocyte# 0.56 X10^3/uL; Monocyte% 1.7 % (0-10); NRBC Flagged by Analyzer 0 % (0-5); Neutrophil # 31.36 X10^3/uL (2.7-7.7); Neutrophil % 93.8 % (47-70); POSITIVE COUNT YES; POSITIVE DIFFERENTIAL YES; POSITIVE MORPHOLOGY YES; Platelet Count 266 K/mm3 (150-450); RBC Distribution Width SD 47.8 fl (35.1-43.9); Red Blood Count 3.78 M/mm3 (4.2-5.4); White Blood Count 33.5 K/mm3 (4.4-11.0)
[2021-10-17] MEDS: Levothyroxine 50 MCG Tablet PO (06:38)
[2021-10-17] MEDS: clonazePAM 1 MG Tablet 2 MG PO (06:39)
[2021-10-17 06:43] LABS: Differential Indicated SCAN CRITERIA MET
[2021-10-17 06:58] LABS: Anion Gap 9 (5-15); BUN 40 mg/dL (7-18); BUN/Creat Ratio 24.1 RATIO (10-20); Calcium,Total 7.6 mg/dL (8.5-10.1); Chloride 105 mmol/L (98-107); Creatinine, Serum 1.66 mg/dL (0.55-1.02); EST Glomerular Filtration Rate 32 mL/min (>60); Est Glom Filt Rate - Afr Amer 39 mL/min (>60); Estimated Creatinine Clearance 25.34 ml/min; Glucose 116 mg/dL (74-106); Sodium Level 133 mmol/L (136-145)
[2021-10-17 07:00] LABS: Differential Comment SCANNED
--- NOTE | 2021-10-17 07:03 | PCM.PN.HOSP ---
Subjective Subjective Patient still has abdominal pain but slightly better than yesterday. Afebrile. No hypotension. Objective Data Objective Data Vital Signs: Vital Signs Temp Pulse Resp BP Pulse Ox 98.3 F 117 H 18 128/89 H 100 10/17/21 06:33 10/17/21 06:33 10/17/21 06:33 10/17/21 06:33 10/17/21 06:33 Oxygen Delivery Method Room Air Weight: 134 lb 4.184 oz Body Mass Index (BMI) 23.8 Intake & Output: Intake and Output for Last 24 Hours 10/15/21 10/16/21 10/17/21 23:59 23:59 23:59 Intake Total 3376.67 / 3376.67 83.33 / 83.33 Balance 3376.67 / 3376.67 83.33 / 83.33 Lab / Micro Data Result Diagrams: 10/17/21 06:20 10/17/21 06:20 Labs: Laboratory Results - last 24 hr 10/16/21 09:21: WBC 37.4 H*, RBC 4.05 L, Hgb 13.3, Hct 40.8, MCV 100.7 H, MCH 32.8 H, MCHC 32.6, RDW Std Deviation 47.9 H, RDW Coeff of Deanne 12.9, Plt Count 346, MPV 11.4, Immature Gran % (Auto) 3.000 H, Neut % (Auto) 91.2 H, Lymph % (Auto) 3.0 L, Eddy % (Auto) 2.5, Eos % (Auto) 0.1, Baso % (Auto) 0.2, Absolute Neuts (auto) 34.1 H, Absolute Lymphs (auto) 1.12, Nucleated RBC % 0, Diff Path Review October10/16/21 09:21: Sodium 134 L, Potassium 3.5, Chloride 103, Carbon Dioxide 22.0, Anion Gap 9, BUN 54 H, Creatinine 2.88 H, Estim Creat Clear Calc 14.61, Est GFR (MDRD) Af Amer 21 L, Est GFR (MDRD) Non-Af 17 L, BUN/Creatinine Ratio 18.8, Glucose 131 H, Calcium 8.2 L 10/16/21 09:21: Lactic Acid 2.0 10/16/21 09:21: Phosphorus 3.9, Magnesium 1.9, Total Bilirubin 0.20, Direct Bilirubin 0.14, AST 13 L, ALT 7 L, Alkaline Phosphatase 135 H, Total Protein 6.8, Albumin 2.5 L, Globulin 4.3 H 10/16/21 09:21: PT 15.5 H, INR 1.3 10/16/21 09:21: ESR 69 H 10/16/21 09:21: Lactate Dehydrogenase 176, C-React Prot Ext Range 318.00 H 10/16/21 09:30: Urine Color Yellow, Urine Clarity Clear, Urine pH 5.0, Ur Specific [place] 1.020, Urine Protein 15 H, Urine Glucose (UA) NEGATIVE, Urine Ketones Negative, Urine Occult Blood Negative, Urine Nitrite Negative, Urine Bilirubin Negative, Urine Urobilinogen Normal, Ur Leukocyte Esterase 2+ 10/16/21 13:45: Ammonia < 10.0 L 10/16/21 13:45: Lactic Acid 1.9 10/17/21 06:20: WBC 33.5 H*, RBC 3.78 L, Hgb 12.4, Hct 37.6, MCV 99.5 H, MCH 32.8 H, MCHC 33.0, RDW Std Deviation 47.8 H, RDW Coeff of Deanne 13.0, Plt Count 266, MPV 11.2, Immature Gran % (Auto) 1.700 H, Neut % (Auto) 93.8 H, Lymph % (Auto) 2.6 L, Eddy % (Auto) 1.7, Eos % (Auto) 0.1, Baso % (Auto) 0.1, Absolute Neuts (auto) 31.4 H, Absolute Lymphs (auto) 0.88, Nucleated RBC % 0, Differential Comment SCANNED, Diff Path Review May foll 10/17/21 06:20: Sodium 133 L, Potassium 3.0 L, Chloride 105, Carbon Dioxide 19.0 L, Anion Gap 9, BUN 40 H, Creatinine 1.66 H, Estim Creat Clear Calc 25.34, Est GFR (MDRD) Af Amer 39 L, Est GFR (MDRD) Non-Af 32 L, BUN/Creatinine Ratio 24.1 H, Glucose 116 H, Calcium 7.6 L Micro: Microbiology 10/16/21 11:03 Stool Enteric Bacteriology - Final 10/16/21 11:03 Stool C. difficile GDH Antigen & Toxins - Final Toxigenic C. difficile 10/16/21 11:03 Stool C. difficile DNA Amplification - Final 10/16/21 11:03 Stool Stool Lactoferrin - Final 10/16/21 11:03 Stool Stool Occult Blood (SUJIT) - Final Occult Blood Positive Radiography Diagnostic Testing: Radiology Impression Abdomen/Pelvis CT 10/16/21 09:44 IMPRESSION: Inflammation of the entire colon worrisome for pseudomembranous colitis or ulcerative colitis. No abscess or perforation. Liver Ultrasound 10/16/21 12:08 IMPRESSION: Increased echogenicity of the kidneys suggestive of medical renal disease. Physical Exam Narrative General: Alert, Oriented x3, Cooperative HEENT: Atraumatic, PERRLA, EOMI, Normocephalic Oral: Oral mucosa dry no Gingival or Mucosal Lesions/ Ulcerations Neck: Supple, No JVD, Negative Carotid Bruits Lungs: Air entry diminished in bilateral lung bases. No crepitation/rhonchi Cardiovascular: Sinus tachycardia, normal S1, Normal S2, No murmurs Abdomen: Soft, tenderness present all over predominantly over the left upper quadrant. Rebound tenderness present. No guarding/rigidity. Bowel sounds high-pitched. Mild abdominal generalized distention. : Dark urine. No renal angle tenderness. No suprapubic tenderness. Extremities: No edema, Capillary Refill Less than 3 Seconds Skin: No rashes, No breakdown Musculoskeletal: Tenderness present over lower spine and bilateral thigh. Surgical scar over the lumbar area. Neurostimulator over right iliac region. ROM restricted. Neurological: Cranial nerves II-XII grossly intact, DTR 2+/4. Muscle strength 4/5 at major joints in lower extremities Psych/Mental Status: Flat affect anxious. Assessment & Plan Assessment/Plan (1) Acute kidney injury: (2) Dehydration: PLAN: 71-year-old female admitted with 4 days history of diarrhea and abdominal pain. 1. Sepsis due to acute infectious colitis, due to C. difficile pancolitis with hypotension: Patient is being admitted to [facility] floor. Patient had hypotension in ED along with heart rate more than 90, leukocytosis with left shift/immature granulocytes and elevated creatinine suggestive of organ dysfunction of kidney and GI. CT abdomen individually reviewed and shows inflammation of entire colon concerning for pseudomembranous colitis or ulcerative colitis with inflammatory stranding and surrounding pericolonic fat. No abscess/perforation. Stool for C. difficile is positive for toxigenic C. difficile antigen/toxin A and B and positive PCR. Stool for enteric bacteriology panel is negative . Patient was empirically started on IV Flagyl and oral vancomycin. Hypotension improved in ED. Lactic acid 2.0. Continue IV fluid Ringer lactate 200 mL/h. 10/17: Discussed with tool and die maker/designer on 10/16. I agreed for keeping the patient n.p.o. in case if she needs surgery. Patient on oral Vanco and IV Flagyl since admission as there was high suspicion of C. difficile and it came positive. Leukocytosis decreased. Repeat lactic acid 1.9. CRP high. LDH 176 normal. Patient has rebound tenderness mainly on the left side. KUB x-ray ordered to see the colonic distention. KUB reviewed and shows gaseous distention of sigmoid and transverse colon. It is officially not reported. Patient states pain is slightly better. 2. GERD possible lower GI bleed: Stool for occult blood positive. Patient is having acid reflux and nausea sensation but no vomiting. No external hematemesis melena or hematochezia. Consult tool and die maker/designer although colonoscopy is contraindicated in infectious colitis. IV Protonix 40 Mg daily. NSAIDs and anticoagulants contraindicated. PT/INR ordered 3. Acute kidney injury on CKD stage IV most likely prerenal but may progress to ATN: Patient baseline creatinine is 1.75-1.98. Patient admitted with creatinine 2.88. IV fluid resuscitation. Monitor intake and output. Bladder scan every 4 hourly. If patient gets urine retention, straight catheterization. 10/17: Sodium 133, potassium 3.0. Bicarb 19, anion gap 9. BUN/creatinine 40/1.66. Overall consistent with hyponatremia, hypokalemia, normal anion gap metabolic acidosis. BUN/creatinine slight improvement. Continue Ringer lactate at 150 mill per hour. IV potassium replaced cautiously as patient has kidney failure. 4. 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 5. Hypertension: Patient recovering from hypotension. Hold antihypertensive medication, bisoprolol HCTZ 6. Hypothyroidism continue levothyroxine. DVT prophylaxis: Pharmacological prophylaxis is contraindicated. Bilateral SCDs Total time of the visit including total time spent in counseling or coordination of care, (more than 50% of the total time, spent in obtaining medical information from nurses and other ancillary care providers,explaining to the patient about labs, imaging, diagnosis and management), discussion with clinical services consultant, review of labs and imaging is 40 minutes. Living will/advanced directive/end of life care: Patient does not have living will or advanced directive. After discussion of benefits/risks procedures involved with full code, DNR CC arrest and DNR CC, the patient opted for DNRCC arrest with no intubation. She states her [id number] Mr. Gael Tyalor is next to kin Patient doesn't want artificial life support including intubation, tube feed, ventilator and/chest compression, central venous catheter, vasopressor and DC shock if needed Active Medications Acetaminophen (Acetaminophen 325 Mg Tablet) 650 mg PO Q6H PRN PRN PRN Reason: Pain Score 1-10/Temp > 100.7 F Last Admin: 10/16/21 18:05 Dose: 650 mg Documented by: Albuterol/Ipratropium (Ipratropium/Albuterol Sulfate 3 Ml Ampul.Neb) 3 ml INHALATION Q4HWA.RT PRN PRN Reason: SOB &/OR WHEEZING Last Admin: 10/16/21 19:27 Dose: 3 ml Documented by: Amitriptyline HCl (Amitriptyline 25 Mg Tablet) 50 mg PO QHS TEMI Last Admin: 10/16/21 21:14 Dose: 50 mg Documented by: Clonazepam (Clonazepam 1 Mg Tablet) 1 mg PO TID PRN PRN Reason: anxiety/restless Duloxetine HCl (Duloxetine Hcl 60 Mg Capsule) 60 mg PO DAILY TEMI Pantoprazole Sodium 40 mg/ (Sodium Chloride) 110 mls @ 330 mls/hr IV Q24 TEMI Last Infusion: 10/16/21 13:26 Dose: Infused Documented by: Metronidazole (Flagyl) 500 mg in 100 mls @ 100 mls/hr IV Q8 TEMI Last Admin: 10/17/21 06:38 Dose: 100 mls/hr Documented by: Sodium Chloride () 250 mls @ 15 mls/hr IV .[id number] PRN PRN Reason: Saline Flush Sodium Chloride () 250 mls @ 15 mls/hr IV .[id number] PRN PRN Reason: Additional IVPB Infusion Potassium Chloride () 10 meq in 100 mls @ 100 mls/hr IV BOLUS Q1H TEMI Stop: 10/17/21 09:29 Lactated Ringer's () 1,000 mls @ 150 mls/hr IV .Q6H40M [facility] Stop: 10/17/21 20:34 Levothyroxine Sodium (Levothyroxine 50 Mcg Tablet) 50 mcg PO DAILY@0600 [facility] Last Admin: 10/17/21 06:38 Dose: 50 mcg Documented by: Metoclopramide HCl (Metoclopramide 10 Mg/2 Ml Vial) 5 mg IV Q6H PRN PRN PRN Reason: NAUSEA Last Admin: 10/16/21 13:36 Dose: 5 mg Documented by: Morphine Sulfate (Morphine 2 Mg/Ml Syringe) 2 mg IV Q3H PRN PRN PRN Reason: Pain Score 6-10 Nitroglycerin (Nitroglycerin (Inpatient Use) 0.4 Mg Tab.Subl) 0.4 mg SL Q5M PRN PRN Reason: CARDIAC/CHEST PAIN Ondansetron HCl (Ondansetron 4 Mg/2 Ml Vial) 4 mg IV Q8H PRN PRN PRN Reason: NAUSEA/VOMITING Last Admin: 10/16/21 23:19 Dose: 4 mg Documented by: Oxycodone HCl (Oxycodone 5 Mg Tablet) 5 mg PO Q4H PRN PRN PRN Reason: Pain Score 4-5 Last Admin: 10/16/21 18:05 Dose: 5 mg Documented by: Pravastatin Sodium (Pravastatin 40 Mg Tablet) 40 mg PO DAILY [facility] Sertraline HCl (Sertraline 100 Mg Tablet) 100 mg PO DAILY [facility] Sodium Chloride (0.9% Saline Lock 10 Ml Syringe) 10 - 40 ml IV UD PRN PRN Reason: SALINE FLUSH Last Admin: 10/16/21 23:19 Dose: 10 ml Documented by: Vancomycin HCl (Vancomycin 125 Mg/5 Ml Susp Po.Syringe) 125 mg PO Q6 [facility] Last Admin: 10/17/21 06:38 Dose: 125 mg Documented by: Charges/Coding Visit Charges Inpatient E&M: [id number] [place] [id number]
[2021-10-17] MEDS: Lactated Ringers 1,000 ML 150 ML IV ×2 (08:21→11:47)
[2021-10-17] MEDS: Potassium Chloride 10mEq/100mL 10 MEQ/100 ML IV.SOLN. 100 MEQ IV BOLUS ×2 (08:55→10:22)
[2021-10-17] MEDS: Pravastatin 40 MG Tablet PO (08:56)
[2021-10-17] MEDS: DULoxetine Hcl 60 MG Capsule PO (08:56)
[2021-10-17] MEDS: Sertraline 100 MG Tablet PO (08:57)
--- NOTE | 2021-10-17 09:58 | RAD_ITS ---
STUDY: XR Abdomen W/ Decub and/or Erect Views 10/17/2021 10:06 AM REASON FOR EXAM: Female, 71 years old. ABDOMINAL PAIN C diff colitis, see colonic diameter TECHNIQUE: XR Abdomen W/ Decub and/or Erect Views COMPARISON: CT done yesterday FINDINGS: Degenerative findings of the hips. Nonspecific bowel gas pattern. There is no demonstrated free abdominal air. The visualized liver, spleen and kidneys are grossly normal in size and morphology. Normal soft tissue structures. There are diffuse degenerative changes of the visualized lumbar spine. There is scoliosis of the lumbar spine. There is a right side sided subcutaneous implanted electronic device with leads extending into the spinal canal. This is likely an SCS (spinal cord stimulator). RAD/Abd Inc Decub and/or Erect IMPRESSION: Nonspecific bowel gas pattern. Electronically Signed: Lai Prajapati MD at 15:39 EDT ,
[2021-10-17 10:02] LABS: Erythrocyte Sedimentation Rate 45 mm/hr (0-30)
[2021-10-17 10:19] LABS: LDH 887 U/L (84-246)
[2021-10-17] MEDS: Vancomycin 125 MG/5 ML Susp PO.SYRINGE 500 MG PO ×2 (11:41→17:43)
--- NOTE | 2021-10-17 12:00 | CASEMGMT ---
SHADIA GOMEZ Assessment: Face to Face with pt for initial transition planning/care coordination assessment. RN JASON introduced self and role at [facility], pt voices understanding and consents to assessment. Pt is A/O x4 and answers all questions appropriately at this time. Pt sitting up in bed. Pt attempted multiple times to sit up in bed and it took several attempts. Care providers, pharmacy, and demographics verified/updated. Admitting Dx: severe diarrhea with hypotension PCP:Clotilde Specialists: PIOTR Daniel and Blayne, pain mgmt Preferred Pharmacy: [facility] [place] Insurance: MCR, [employer] MCR Prescription Benefit: yes LW/HPOA: Pt denies having a LW/DPOA and denies need for info regarding AD. LNOK: Gael Taylor, brother in law- Attempted to obtain phone number from pt phone but she states she got her phone wet and it will not turn on. Living Arrangements: Pt lives alone in a single story house with 2 steps to enter with a rail. Pt reports she is I in ADL's and denies concerns at home. Transportation: Pt drives self and denies concerns with transportation. DME/HHC/SNF: Pt has a cane and walker but does not use any AD at home. Pt denies hx of HHC or SNF stays. Pt states no concerns with going home at time of dc. Discussed pt weakness, she states she does not want any HHC and if you send them to my house, I will tell them to get lost. Discussed outpt therapy, pt denies. Pt states she has neighbors to assist her. Pt declines to designate a contact lens polisher for dc planning. She states that her brother in law wants her to go to a SNF for s/t therapy and that will not happen. Pt states no further concerns/needs. CM to follow. Advised pt to ask CM if any further question/concerns/needs arise, voices understanding. Pt Goal: Home Plan: Home
[2021-10-17 13:55] LABS: Pathologist Review Reviewed
[2021-10-17 13:59] LABS: Pathologist Review Reviewed
--- NOTE | 2021-10-17 14:18 | CHAPLAIN ---
Type of Pastoral Visit _x__ Initial Visit ___ Follow-up Visit ___ On-call Visit ___ General Patient Visit ___ Spiritual Assessment ___ Family Conference ___ Bereavement ___ Rapid Response ___ Code Blue ___ Other (describe below) Pastoral Care Referral From _x__ Patient ___ Family ___ Nurse ___ Physician ___ Communications Intern ___ Property Inspector ___ Other (describe below) Sacrament/Intervention _x__ Active listening ___ Anointing ___ Faith ___ Bereavement ___ Communion ___ Louisa exploration ___ ___ Life review ___ Prayer ___ Reconciliation ___ Sacrament of Sick ___ Supportive presence ___ Wedding ___ Other (describe below) Pastoral Comments patient reports some improvement; pt has no other immediate needs; spouse is with her in room
--- NOTE | 2021-10-17 16:33 | PN_ITS ---
Subjective Subjective Patient is still having multiple episodes of diarrhea. Her abdominal pain was rated at a 6 out of 10. Today she rates it at a 4 out of 10. Her nausea is a little bit better. Objective Data Objective Data Vital Signs: Vital Signs Temp Pulse Resp BP Pulse Ox 98.7 F 113 H 16 137/126 H 93 10/17/21 14:49 10/17/21 14:55 10/17/21 14:49 10/17/21 14:49 10/17/21 14:49 Oxygen Delivery Method Room Air Weight: 134 lb 4.184 oz Body Mass Index (BMI) 23.8 Intake & Output: Intake and Output for Last 24 Hours 10/15/21 10/16/21 10/17/21 23:59 23:59 23:59 Intake Total 3376.67 / 3376.67 2279.16 / 2279.16 Balance 3376.67 / 3376.67 2279.16 / 2279.16 Lab / Micro Data Result Diagrams: 10/17/21 06:20 10/17/21 06:20 Labs: Laboratory Results - last 24 hr 10/16/21 09:21: Diff Path Review Reviewed 10/17/21 06:20: WBC 33.5 H*, RBC 3.78 L, Hgb 12.4, Hct 37.6, MCV 99.5 H, MCH 32.8 H, MCHC 33.0, RDW Std Deviation 47.8 H, RDW Coeff of Deanne 13.0, Plt Count 266, MPV 11.2, Immature Gran % (Auto) 1.700 H, Neut % (Auto) 93.8 H, Lymph % (Auto) 2.6 L, [place]duff[place] % (Auto) 1.7, Eos % (Auto) 0.1, Baso % (Auto) 0.1, Absolute Neuts (auto) 31.4 H, Absolute Lymphs (auto) 0.88, Nucleated RBC % 0, Differential Comment SCANNED, Diff Path Review Reviewed 10/17/21 06:20: Sodium 133 L, Potassium 3.0 L, Chloride 105, Carbon Dioxide 19.0 L, Anion Gap 9, BUN 40 H, Creatinine 1.66 H, Estim Creat Clear Calc 25.34, Est GFR (MDRD) Af Amer 39 L, Est GFR (MDRD) Non-Af 32 L, BUN/Creatinine Ratio 24.1 H , Glucose 116 H, Calcium 7.6 L 10/17/21 09:35: ESR 45 H 10/17/21 09:35: Lactate Dehydrogenase 887 H, C-React Prot Ext Range 242.00 H 10/17/21 09:35: Lactic Acid Cancelled 10/17/21 10:30: Lactic Acid Cancelled Micro: Microbiology 10/16/21 11:03 Stool Enteric Bacteriology - Final 10/16/21 11:03 Stool C. difficile GDH Antigen & Toxins - Final Toxigenic C. difficile 10/16/21 11:03 Stool C. difficile DNA Amplification - Final 10/16/21 11:03 Stool Stool Lactoferrin - Final 10/16/21 11:03 Stool Stool Occult Blood (SUJIT) - Final Occult Blood Positive Radiography Diagnostic Testing: Radiology Impression Abdomen X-Ray 10/17/21 09:58 IMPRESSION: Nonspecific bowel gas pattern. Electronically Signed: Lai Prajapati MD at 15:39 EDT Reading Location ID and State: [facility] / [place] , Service support , Physical Exam Const alert General Appearance: cooperative Orientation / Consciousness: oriented to person HEENT hearing grossly normal bilaterally Head and Scalp: normal to inspection Face and Sinus: face symmetric Nose: external nose normal Mouth: oral and palatal mucosa normal Eyes conjunctivae normal General Eye: normal appearance of both eyes Neck full ROM General: normal visual inspection Lymph Lymphatic: no lymphadenopathy noted Chest inspection of chest normal and palpation of chest normal Chest: symmetrical chest wall rise Resp normal respiratory effort Effort and Inspection: able to speak in complete sentences Cardio regular rate GI non-distended Percussion: normal to percussion Rectal Exam: deferred Neuro Speech: speech normal Gait (Neuro): normal gait Assessment & Plan Assessment/Plan (1) C. difficile colitis: PLAN: Standard therapy for severe C. difficile colitis would be vancomycin 500 mg p.o. every 6 hours plus IV Flagyl 500 mg IV every 12 hours. I will inc rease her vancomycin from 125 mg to 500 mg. Her current KUB does not show any signs of significant bowel dilation. Her ESR, CRP and BUN/creatinine ratio are all improving which are very good signs in the first 24 to 48 hours after severe C. difficile infection. Her white blood cell count has decreased somewhat. I suspect that it will continue to decrease as she gets more absorption from the vancomycin and the inflammation decreases. Charges/Coding Visit Charges Inpatient E&M: [id number] Subs Hosp L2
[2021-10-17] MEDS: Ondansetron 4 MG/2 ML Vial IV (17:46)
[2021-10-17] MEDS: Dext 5%-0.45% NS 1,000 ML 75 ML IV (20:00)
[2021-10-18] VITALS (13 sets, daily range): BP systolic 129–163; BP diastolic 84–96; PULSE 90–111; RESP 16–20; TEMP 36.1–37.1; O2SAT 94–100
[2021-10-18] MEDS: Amitriptyline 25 MG Tablet 50 MG PO ×2 (00:09→23:34)
[2021-10-18] MEDS: Acetaminophen 325 MG Tablet 650 MG PO ×3 (00:16→23:35)
[2021-10-18] MEDS: Vancomycin 125 MG/5 ML Susp PO.SYRINGE 500 MG PO ×5 (00:16→23:35)
--- NOTE | 2021-10-18 01:39 | EKG12_ITS ---
Test Reason : TACHY Blood Pressure : / mmHG Vent. Rate : 121 BPM Atrial Rate : 102 BPM P-R Int : 000 ms QRS Dur : 102 ms QT Int : 334 ms P-R-T Axes : 000 047 022 degrees QTc Int : 474 ms Atrial fibrillation Nonspecific ST and T wave abnormality Abnormal ECG Confirmed by RALPH OSWALD, SHEYLA ([id number]), social media editor AMXIMO JEAN ([id number]) on 10/21/2021 11:19:00 AM Referred By: QI Confirmed By:SHEYLA ROSAS MD
[2021-10-18] MEDS: Levothyroxine 50 MCG Tablet PO (05:33)
[2021-10-18 07:33] LABS: Absolute Lymphocyte Count 1.07 X10^3/uL (0.83-4.51); Absolute Neutrophil Count 27.3 X10^3/uL (2.0-7.7); Basophil# 0.15 X10^3/uL; Basophil% 0.5 % (0-1); Eosinophil# 0.26 X10^3/uL; Eosinophils% 0.9 % (0-5); Hemoglobin 12.2 g/dL (12.0-15.0); Lymphocyte # 1.07 X10^3/ul (0.83-4.51); Lymphocyte % 3.6 % (19-41); Mean Corp Hgb Conc 33.9 g/dL (32-36); Mean Corpuscular Hgb 32.8 pg (27.0-32.0); Mean Corpuscular Volume 96.8 fL (81-99); Mean Platelet Vol. 11.5 fl (6.2-12.0); Monocyte# 0.85 X10^3/uL; Monocyte% 2.8 % (0-10); NRBC Flagged by Analyzer 0 % (0-5); Neutrophil # 27.26 X10^3/uL (2.7-7.7); POSITIVE DIFFERENTIAL YES; Platelet Count 263 K/mm3 (150-450); RBC Distribution Width CV 12.8 % (11.6-14.6); RBC Distribution Width SD 46.4 fl (35.1-43.9); Red Blood Count 3.72 M/mm3 (4.2-5.4); White Blood Count 29.9 K/mm3 (4.4-11.0)
--- NOTE | 2021-10-18 07:43 | PCM.PN.HOSP ---
Subjective Subjective Patient is still having abdominal pain. She had large amount of black diarrhea in the morning and prior to that she had yesterday morning. Hemoglobin did not drop since yesterday. Patient had A. fib with RVR yesterday currently heart rate in 100s. Objective Data Objective Data Vital Signs: Vital Signs Temp Pulse Resp BP Pulse Ox 96.9 F L 104 H 20 H 145/92 H 95 10/18/21 01:56 10/18/21 02:00 10/18/21 01:56 10/18/21 01:56 10/18/21 07:26 Oxygen Delivery Method Room Air Weight: 134 lb 4.184 oz Body Mass Index (BMI) 23.8 Intake & Output: Intake and Output for Last 24 Hours 10/16/21 10/17/21 10/18/21 23:59 23:59 23:59 Intake Total 3376.67 / 3376.67 2916.66 / 2916.66 100 / 100 Balance 3376.67 / 3376.67 2916.66 / 2916.66 100 / 100 Lab / Micro Data Result Diagrams: 10/18/21 07:13 10/18/21 07:13 Labs: Laboratory Results - last 24 hr 10/16/21 09:21: Diff Path Review Reviewed 10/17/21 06:20: Diff Path Review Reviewed 10/17/21 09:35: ESR 45 H 10/17/21 09:35: Lactate Dehydrogenase 887 H, C-React Prot Ext Range 242.00 H 10/17/21 09:35: Lactic Acid Cancelled 10/17/21 10:30: Lactic Acid Cancelled Micro: Microbiology 10/16/21 11:03 Stool Enteric Bacteriology - Final 10/16/21 11:03 Stool C. difficile GDH Antigen & Toxins - Final Toxigenic C. difficile 10/16/21 11:03 Stool C. difficile DNA Amplification - Final 10/16/21 11:03 Stool Stool Lactoferrin - Final 10/16/21 11:03 Stool Stool Occult Blood (SUJIT) - Final Occult Blood Positive Radiography Diagnostic Testing: Radiology Impression Abdomen X-Ray 10/17/21 09:58 IMPRESSION: Nonspecific bowel gas pattern. Electronically Signed: Lai Prajapati MD at 15:39 EDT , Physical Exam Narrative General: Alert, Oriented x3, Cooperative HEENT: Atraumatic, PERRLA, EOMI, Normocephalic Oral: Oral mucosa dry no Gingival or Mucosal Lesions/ Ulcerations Neck: Supple, No JVD, Negative Carotid Bruits Lungs: Air entry diminished in bilateral lung bases. No crepitation/rhonchi Cardiovascular: Regular tachycardia, A. fib RVR, normal S1, Normal S2, No murmurs Abdomen: Soft, tenderness present predominantly over the left upper quadrant. Rebound tenderness present. No guarding/rigidity. Bowel sounds high-pitched. No significant distention. : Dark urine. No renal angle tenderness. No suprapubic tenderness. Extremities: No edema, Capillary Refill Less than 3 Seconds Skin: No rashes, No breakdown Musculoskeletal: Tenderness present over lower spine and bilateral thigh. Surgical scar over the lumbar area. Neurostimulator over right iliac region. ROM restricted. Neurological: Cranial nerves II-XII grossly intact, DTR 2+/4. Muscle strength 4/5 at major joints in lower extremities Psych/Mental Status: Flat affect anxious. Assessment & Plan Assessment/Plan (1) Acute kidney injury: (2) Dehydration: PLAN: 71-year-old female admitted with 4 days history of diarrhea and abdominal pain. 1. Sepsis due to acute infectious colitis, due to C. difficile pancolitis with hypotension: Patient is being admitted to MedSur floor. Patient had hypotension in ED along with heart rate more than 90, leukocytosis with left shift/immature granulocytes and elevated creatinine suggestive of organ dysfunction of kidney and GI. CT abdomen individually reviewed and shows inflammation of entire colon concerning for pseudomembranous colitis or ulcerative colitis with inflammatory stranding and surrounding pericolonic fat. No abscess/perforation. Stool for C. difficile is positive for toxigenic C. difficile antigen/toxin A and B and positive PCR. Stool for enteric bacteriology panel is negative . Patient was empirically started on IV Flagyl and oral vancomycin. Hypotension improved in ED. Lactic acid 2.0. Continue IV fluid Ringer lactate 200 mL/h. 10/17: Discussed with geothermal hvac technician on 10/16. I agreed for keeping the patient n.p.o. in case if she needs surgery. Patient on oral Vanco and IV Flagyl since admission as there was high suspicion of C. difficile and it came positive. Leukocytosis decreased. Repeat lactic acid 1.9. CRP high. LDH 176 normal. Patient has rebound tenderness mainly on the left side. KUB x-ray ordered to see the colonic distention. KUB reviewed and shows gaseous distention of sigmoid and transverse colon. It is officially not reported. Patient states pain is slightly better. 10/18: CRP is improving. ESR 45. Vancomycin oral dose increased to 500 mg every 6 hourly on 10/17. Patient is states regular diet is giving her more abdominal cramps therefore diet changed to clear to full liquid. Patient had black stool but H&H stable over 12 point gram percent. Admitting hemoglobin 13.3 g%. Her baseline runs around 12 g%. Repeat abdominal x-ray shows nonspecific bowel gas pattern. No particular distention of colon. 2. GERD possible lower GI bleed: Stool for occult blood positive. Patient is having acid reflux and nausea sensation but no vomiting. No external hematemesis melena or hematochezia. Consult geothermal hvac technician although colonoscopy is contraindicated in infectious colitis. IV Protonix 40 Mg daily. NSAIDs and anticoagulants contraindicated. PT/INR ordered 3. Acute kidney injury on CKD stage IV most likely prerenal but may progress to ATN: Patient baseline creatinine is 1.75-1.98. Patient admitted with creatinine 2.88. IV fluid resuscitation. Monitor intake and output. Bladder scan every 4 hourly. If patient gets urine retention, straight catheterization. 10/17: Sodium 133, potassium 3.0. Bicarb 19, anion gap 9. BUN/creatinine 40/1.66. Overall consistent with hyponatremia, hypokalemia, normal anion gap metabolic acidosis. BUN/creatinine slight improvement. Continue Ringer lactate at 150 mill per hour. IV potassium replaced cautiously as patient has kidney failure. 10/18: Creatinine is improving from 2.88-1.19. Continue IV fluid D5 half NS. Severe hypokalemia and hypophosphatemia. IV potassium phosphate ordered. 4. 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 10/18: Klonopin dose was decreased and made as needed on 10/17. 5. Hypertension: Patient recovering from hypotension. Hold antihypertensive medication, bisoprolol HCTZ 6. Hypothyroidism continue levothyroxine. DVT prophylaxis: Pharmacological prophylaxis is contraindicated. Bilateral SCDs Total time of the visit including total time spent in counseling or coordination of care, (more than 50% of the total time, spent in obtaining medical information from nurses and other ancillary care providers,explaining to the patient about labs, imaging, diagnosis and management), discussion with image consultant, review of labs and imaging is 40 minutes. Living will/advanced directive/end of life care: Patient does not have living will or advanced directive. After discussion of benefits/risks procedures involved with full code, DNR CC arrest and DNR CC, the patient opted for DNRCC arrest with no intubation. She states her [id number] Mr. Gael Taylor is next to kin Patient doesn't want artificial life support including intubation, tube feed, ventilator and/chest compression, central venous catheter, vasopressor and DC shock if needed Charges/Coding Visit Charges Inpatient E&M: 14290 Subs Hosp L3
[2021-10-18 07:59] LABS: Anion Gap 10 (5-15); BUN 26 mg/dL (7-18); BUN/Creat Ratio 21.8 RATIO (10-20); Calcium,Total 7.4 mg/dL (8.5-10.1); Chloride 104 mmol/L (98-107); Creatinine, Serum 1.19 mg/dL (0.55-1.02); EST Glomerular Filtration Rate 47 mL/min (>60); Est Glom Filt Rate - Afr Amer 57 mL/min (>60); Estimated Creatinine Clearance 35.35 ml/min; Glucose 124 mg/dL (74-106); Potassium 2.7 mmol/L (3.5-5.1); Sodium Level 134 mmol/L (136-145)
[2021-10-18 08:07] LABS: Magnesium 1.8 mg/dL (1.6-2.6); Phosphorus 1.3 mg/dL (2.5-4.9)
[2021-10-18 08:31] LABS: Differential Indicated SCAN CRITERIA MET
--- NOTE | 2021-10-18 08:56 | RAD_ITS ---
HISTORY: C diff, severe with abd cramps. TECHNIQUE: XR Abdomen W/ Decub and/or Erect Views. # of images incl. paperwork: 3. COMPARISON: None. FINDINGS: LUNG BASES: Clear. FREE AIR: None seen on upright view. BOWEL GAS PATTERN: Gaseous distention of bowel without dilatation. Suggestion of bowel wall thickening in the left abdomen. CALCIFICATIONS: Pelvic phleboliths observed. SOFT TISSUES: Implanted device with thoracic electrode again noted. BONES: Mild scoliosis and degenerative change. RAD/Abd Inc Decub and/or Erect IMPRESSION: Mild gaseous distention of bowel with colonic wall thickening, compatible with the history of colitis. at 1219 Reported and signed by: Selma Guadalupe MD Electronically Signed: Selma Guadalupe MD at 12:18 EDT ,
[2021-10-18] MEDS: Dext 5%-0.45% NS 1,000 ML 75 ML IV ×2 (10:05→23:34)
[2021-10-18] MEDS: Metoprolol Tartrate 25 MG Tablet PO ×2 (10:05→23:35)
[2021-10-18] MEDS: Sertraline 100 MG Tablet PO (10:15)
[2021-10-18] MEDS: DULoxetine Hcl 60 MG Capsule PO (10:15)
[2021-10-18] MEDS: Pravastatin 40 MG Tablet PO (10:15)
[2021-10-18] MEDS: oxyCODONE 5 MG Tablet PO (14:57)
[2021-10-18] MEDS: 0.9% Saline Lock 10 ML Syringe IV (23:47)
[2021-10-19] VITALS (13 sets, daily range): BP systolic 127–167; BP diastolic 75–96; PULSE 59–107; RESP 16–18; TEMP 35.9–36.8; O2SAT 93–98
[2021-10-19 06:17] LABS: Absolute Lymphocyte Count 1.18 X10^3/uL (0.83-4.51); Absolute Neutrophil Count 18.5 X10^3/uL (2.0-7.7); Basophil# 0.09 X10^3/uL; Basophil% 0.4 % (0-1); Eosinophil# 0.52 X10^3/uL; Eosinophils% 2.5 % (0-5); Hematocrit 36.2 % (37-47); Hemoglobin 12.1 g/dL (12.0-15.0); Lymphocyte # 1.18 X10^3/ul (0.83-4.51); Lymphocyte % 5.6 % (19-41); Mean Corp Hgb Conc 33.4 g/dL (32-36); Mean Corpuscular Hgb 32.2 pg (27.0-32.0); Mean Corpuscular Volume 96.3 fL (81-99); Mean Platelet Vol. 11.2 fl (6.2-12.0); Monocyte# 0.59 X10^3/uL; Monocyte% 2.8 % (0-10); NRBC Flagged by Analyzer 0 % (0-5); Neutrophil # 18.53 X10^3/uL (2.7-7.7); Neutrophil % 87.3 % (47-70); Platelet Count 241 K/mm3 (150-450); RBC Distribution Width CV 13.2 % (11.6-14.6); RBC Distribution Width SD 47.1 fl (35.1-43.9); Red Blood Count 3.76 M/mm3 (4.2-5.4); White Blood Count 21.2 K/mm3 (4.4-11.0)
[2021-10-19 06:41] LABS: Anion Gap 8 (5-15); BUN 17 mg/dL (7-18); BUN/Creat Ratio 16.8 RATIO (10-20); Calcium,Total 6.9 mg/dL (8.5-10.1); Chloride 107 mmol/L (98-107); Creatinine, Serum 1.01 mg/dL (0.55-1.02); EST Glomerular Filtration Rate 57 mL/min (>60); Est Glom Filt Rate - Afr Amer 69 mL/min (>60); Estimated Creatinine Clearance 41.65 ml/min; Glucose 122 mg/dL (74-106); Potassium 2.8 mmol/L (3.5-5.1); Sodium Level 137 mmol/L (136-145)
[2021-10-19] MEDS: Vancomycin 125 MG/5 ML Susp PO.SYRINGE 500 MG PO ×3 (06:57→19:30)
[2021-10-19] MEDS: Levothyroxine 50 MCG Tablet PO (06:58)
[2021-10-19] MEDS: DULoxetine Hcl 60 MG Capsule PO (10:28)
[2021-10-19] MEDS: Sertraline 100 MG Tablet PO (10:28)
[2021-10-19] MEDS: Metoprolol Tartrate 25 MG Tablet PO ×2 (10:28→22:32)
[2021-10-19] MEDS: Pravastatin 40 MG Tablet PO (10:28)
--- NOTE | 2021-10-19 11:05 | PN.HOSP_ITS ---
Subjective Subjective Patient is still having loose bowel movement mainly bilious in nature But it has some solid fecal matter stool. Mild decrease in stool frequency. No abdominal pain. Objective Data Objective Data Vital Signs: Vital Signs Temp Pulse Resp BP Pulse Ox 97.9 F 59 L 16 167/75 H 93 10/19/21 06:55 10/19/21 06:55 10/19/21 06:55 10/19/21 06:55 10/19/21 06:55 Oxygen Delivery Method Room Air Weight: 134 lb 4.184 oz Body Mass Index (BMI) 23.8 Intake & Output: Intake and Output for Last 24 Hours 10/17/21 10/18/21 10/19/21 23:59 23:59 23:59 Intake Total 2916.66 / 2916.66 4223.3333 / 4223.3333 100 / 100 Balance 2916.66 / 2916.66 4223.3333 / 4223.3333 100 / 100 Lab / Micro Data Result Diagrams: 10/19/21 05:55 10/19/21 05:55 Labs: Laboratory Results - last 24 hr 10/18/21 07:13: WBC 29.9 H, RBC 3.72 L, Hgb 12.2, Hct 36.0 L, MCV 96.8, MCH 32.8 H, MCHC 33.9, RDW Std Deviation 46.4 H, RDW Coeff of Deanne 12.8, Plt Count 263, MPV 11.5, Immature Gran % (Auto) 1.200 H, Neut % (Auto) 91.0 H, Lymph % (Auto) 3.6 L, [place] % (Auto) 2.8, Eos % (Auto) 0.9, Baso % (Auto) 0.5, Absolute Neuts (auto) 27.3 H, Absolute Lymphs (auto) 1.07, Nucleated RBC % 0 10/18/21 07:13: Sodium 134 L, Potassium 2.7 L*, Chloride 104, Carbon Dioxide 20.0 L, Anion Gap 10, BUN 26 H, Creatinine 1.19 H, Estim Creat Clear Calc 35.35, Est GFR (MDRD) Af Amer 57 L, Est GFR (MDRD) Non-Af 47 L, BUN/Creatinine Ratio 21.8 H, Glucose 124 H, Calcium 7.4 L 10/18/21 07:13: Phosphorus 1.3 L, Magnesium 1.8 10/19/21 05:55: WBC 21.2 H, RBC 3.76 L, Hgb 12.1, Hct 36.2 L, MCV 96.3, MCH 32.2 H, MCHC 33.4, RDW Std Deviation 47.1 H, RDW Coeff of Deanne 13.2, Plt Count 241, MPV 11.2, Immature Gran % (Auto) 1.400 H, Neut % (Auto) 87.3 H, Lymph % (Auto) 5.6 L, [place] % (Auto) 2.8, Eos % (Auto) 2.5, Baso % (Auto) 0.4, Absolute Neuts (a uto) 18.5 H, Absolute Lymphs (auto) 1.18, Nucleated RBC % 0 10/19/21 05:55: Sodium 137, Potassium 2.8 L, Chloride 107, Carbon Dioxide 22.0, Anion Gap 8, BUN 17, Creatinine 1.01, Estim Creat Clear Calc 41.65, Est GFR (MDRD) Af Amer 69, Est GFR (MDRD) Non-Af 57 L, BUN/Creatinine Ratio 16.8, Glucose 122 H, Calcium 6.9 L Micro: Microbiology 10/16/21 13:55 Blood Culture (Wb) - Right Wrist Blood Culture - Preliminary No growth in 48 hours. 10/16/21 13:45 Blood Culture (Wb) - Left Hand Blood Culture - Preliminary No growth in 48 hours. 10/16/21 11:03 Stool Enteric Bacteriology - Final 10/16/21 11:03 Stool C. difficile GDH Antigen & Toxins - Final Toxigenic C. difficile 10/16/21 11:03 Stool C. difficile DNA Amplification - Final 10/16/21 11:03 Stool Stool Lactoferrin - Final 10/16/21 11:03 Stool Stool Occult Blood (SUJIT) - Final Occult Blood Positive Radiography Diagnostic Testing: Radiology Impression Abdomen X-Ray 10/18/21 08:56 IMPRESSION: Mild gaseous distention of bowel with colonic wall thickening, compatible with the history of colitis. at 1219 Reported and signed by: Selma Guadalupe MD Electronically Signed: Selma Guadalupe MD at 12:18 EDT , Physical Exam Narrative General: Alert, Oriented x3, Cooperative HEENT: Atraumatic, PERRLA, EOMI, Normocephalic Oral: Oral mucosa dry no Gingival or Mucosal Lesions/ Ulcerations Neck: Supple, No JVD, Negative Carotid Bruits Lungs: Air entry diminished in bilateral lung bases. No crepitation/rhonchi Cardiovascular: A. fib heart rate 90s to 105/min, normal S1, Normal S2, No murmurs Abdomen: Soft, tenderness has improved, no tenderness. No guarding/rigidity. Bowel sounds high-pitched. No significant distention. : Dark urine. No renal angle tenderness. No suprapubic tenderness. Extremities: No edema, Capillary Refill Less than 3 Seconds Skin: No rashes, No breakdown Musculoskeletal: Tenderness present over lower spine and bilateral thigh. Surgical scar over the lumbar area. Neurostimulator over right iliac region. ROM restricted. Neurological: Cranial nerves II-XII grossly intact, DTR 2+/4. Muscle strength 4/5 at major joints in lower extremities Psych/Mental Status: Flat affect anxious. Assessment & Plan Assessment/Plan (1) Acute kidney injury: (2) Dehydration: PLAN: 71-year-old female admitted with 4 days history of diarrhea and abdominal pain. 1. Sepsis due to acute infectious colitis, due to C. difficile pancolitis with hypotension: Patient is being admitted to MedSurg floor. Patient had hypotensio n in ED along with heart rate more than 90, leukocytosis with left shift/immature granulocytes and elevated creatinine suggestive of organ dysfunction of kidney and GI. CT abdomen individually reviewed and shows inflammation of entire colon concerning for pseudomembranous colitis or ulcerative colitis with inflammatory stranding and surrounding pericolonic fat. No abscess/perforation. Stool for C. difficile is positive for toxigenic C. difficile antigen/toxin A and B and positive PCR. Stool for enteric bacteriology panel is negative . Patient was empirically started on IV Flagyl and oral vancomycin. Hypotension improved in ED. Lactic acid 2.0. Continue IV fluid Ringer lactate 200 mL/h. 10/17: Discussed with supervisor sheet manufacturing on 10/16. I agreed for keeping the patient n.p.o. in case if she needs surgery. Patient on oral Vanco and IV Flagyl since admission as there was high suspicion of C. difficile and it came positive. Leukocytosis decreased. Repeat lactic acid 1.9. CRP high. LDH 176 normal. Patient has rebound tenderness mainly on the left side. KUB x-ray ordered to see the colonic distention. KUB reviewed and shows gaseous distention of sigmoid and transverse colon. It is officially not reported. Patient states pain is slightly better. 10/18: CRP is improving. ESR 45. Vancomycin oral dose increased to 500 mg every 6 hourly on 10/17. Patient is states regular diet is giving her more abdominal cramps therefore diet changed to clear to full liquid. Patient had black stool but H&H stable over 12 point gram percent. Admitting hemoglobin 13.3 g%. Her baseline runs around 12 g%. Repeat abdominal x-ray shows nonspecific bowel gas pattern. No particular distention of colon. 10/19: Diet advanced to soft. Rest seem to continue. Diarrhea frequency decr eased and consistency improving. A. fib with RVR: Patient had A. fib with RVR on 10/18. It seems patient has paroxysmal A. fib. RVR probably because of holding bisoprolol?HCTZ. Started metoprolol 25 mg p.o. twice daily. For now, anticoagulation is contraindicated. 2. Possible early cirrhosis with GERD possible lower GI bleed: Stool for occult blood positive. Patient is having acid reflux and nausea sensation but no vomiting. No external hematemesis melena or hematochezia. Consult gastro enterologist although colonoscopy is contraindicated in infectious colitis. IV Protonix 40 Mg daily. NSAIDs and anticoagulants contraindicated. PT/INR elevated 1.3 possible chronic liver disease. Liver ultrasound shows normal echogenicity with mild lobulation of the contour therefore suspicion of possible early cirrhosis. Portal flow hepatopetal. No mass demonstrated. 3. Acute kidney injury on CKD stage IV most likely prerenal but may progress to ATN: Patient baseline creatinine is 1.75-1.98. Patient admitted with creatinine 2.88. IV fluid resuscitation. Monitor intake and output. Bladder scan every 4 hourly. If patient gets urine retention, straight catheterization. 10/17: Sodium 133, potassium 3.0. Bicarb 19, anion gap 9. BUN/creatinine 40/1.66. Overall consistent with hyponatremia, hypokalemia, normal anion gap metabolic acidosis. BUN/creatinine slight improvement. Continue Ringer lactate at 150 mill per hour. IV potassium replaced cautiously as patient has kidney failure. 10/18: Creatinine is improving from 2.88-1.19. Continue IV fluid D5 half NS. Severe hypokalemia and hypophosphatemia. IV potassium phosphate ordered. 10/19: EMA resolved. Hypokalemia, potassium replaced 4. 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 10/18: Klonopin dose was decreased and made as needed on 10/17. 5. Hypertension: Patient recovering from hypotension. Hold antihypertensive medication, bisoprolol HCTZ 6. Hypothyroidism continue levothyroxine. DVT prophylaxis: Pharmacological prophylaxis is contraindicated. Bilateral SCDs Total time of the visit including total time spent in counseling or coordination of care, (more than 50% of the total time, spent in obtaining medical information from nurses and other ancillary care providers,explaining to the patient about labs, imaging, diagnosis and management), discussion with senior environmental consultant, review of labs and imaging is 40 minutes. Living will/advanced directive/end of life care: Patient does not have living will or advanced directive. After discussion of benefits/risks procedures involved with full code, DNR CC arrest and DNR CC, the patient opted for DNRCC arrest with no intubation. She states her [id number] Mr. Gael Taylor is next to kin Patient doesn't want artificial life support including intubation, tube feed, ventilator and/chest compression, central venous catheter, vasopressor and DC shock if needed Charges/Coding Visit Charges Inpatient E&M: 57208 Subs Hosp L2
[2021-10-19] MEDS: oxyCODONE 5 MG Tablet PO ×2 (11:13→17:31)
[2021-10-19] MEDS: Potassium Chloride 40 MEQ in Dext 5%-0.45% NS 1,000 ML 75 MEQ IV ×2 (11:19→22:22)
[2021-10-19] MEDS: clonazePAM 1 MG Tablet PO (12:21)
--- NOTE | 2021-10-19 15:53 | NURSING ---
This nurse noticed this morning that pt kept having a dry cough with breakfast. pt states that she gagges on any food and attributes it to the diarrhea. Have monitored thus far this shift. Pt coughs with water a pills as well. This nurse going to consult with Dr. Thompson about speech eval.
[2021-10-19] MEDS: Amitriptyline 25 MG Tablet 50 MG PO (22:33)
[2021-10-19] MEDS: Acetaminophen 325 MG Tablet 650 MG PO (22:33)
[2021-10-20] VITALS (14 sets, daily range): BP systolic 106–157; BP diastolic 76–109; PULSE 83–118; RESP 16–24; TEMP 36.6–36.9; O2SAT 95–100
[2021-10-20] MEDS: Vancomycin 125 MG/5 ML Susp PO.SYRINGE 500 MG PO ×5 (00:15→23:28)
[2021-10-20] MEDS: Ondansetron 4 MG/2 ML Vial IV (05:53)
[2021-10-20] MEDS: Levothyroxine 50 MCG Tablet PO (05:53)
[2021-10-20] MEDS: 0.9% Saline Lock 10 ML Syringe IV ×3 (06:00→21:28)
[2021-10-20] MEDS: Acetaminophen 325 MG Tablet 650 MG PO ×2 (06:22→21:13)
[2021-10-20] MEDS: clonazePAM 1 MG Tablet PO ×2 (06:22→14:02)
[2021-10-20 08:01] LABS: Absolute Lymphocyte Count 1.23 X10^3/uL (0.83-4.51); Absolute Neutrophil Count 13.1 X10^3/uL (2.0-7.7); Basophil# 0.06 X10^3/uL; Basophil% 0.4 % (0-1); Eosinophil# 0.56 X10^3/uL; Eosinophils% 3.5 % (0-5); Hematocrit 37.2 % (37-47); Hemoglobin 12.3 g/dL (12.0-15.0); Lymphocyte # 1.23 X10^3/ul (0.83-4.51); Lymphocyte % 7.8 % (19-41); Mean Corp Hgb Conc 33.1 g/dL (32-36); Mean Corpuscular Volume 99.7 fL (81-99); Mean Platelet Vol. 11.2 fl (6.2-12.0); Monocyte% 3.8 % (0-10); NRBC Flagged by Analyzer 0 % (0-5); Neutrophil # 13.06 X10^3/uL (2.7-7.7); Neutrophil % 82.4 % (47-70); Platelet Count 225 K/mm3 (150-450); RBC Distribution Width CV 13.2 % (11.6-14.6); RBC Distribution Width SD 48.8 fl (35.1-43.9); Red Blood Count 3.73 M/mm3 (4.2-5.4); White Blood Count 15.9 K/mm3 (4.4-11.0)
[2021-10-20 08:23] LABS: Anion Gap 6 (5-15); BUN 9 mg/dL (7-18); BUN/Creat Ratio 10.9 RATIO (10-20); Calcium,Total 6.6 mg/dL (8.5-10.1); Chloride 111 mmol/L (98-107); Creatinine, Serum 0.82 mg/dL (0.55-1.02); EST Glomerular Filtration Rate 72 mL/min (>60); Est Glom Filt Rate - Afr Amer 88 mL/min (>60); Glucose 113 mg/dL (74-106); Potassium 3.2 mmol/L (3.5-5.1); Sodium Level 140 mmol/L (136-145)
[2021-10-20] MEDS: Pravastatin 40 MG Tablet PO (09:06)
[2021-10-20] MEDS: Sertraline 100 MG Tablet PO (09:06)
[2021-10-20] MEDS: DULoxetine Hcl 60 MG Capsule PO (09:06)
[2021-10-20] MEDS: Metoprolol Tartrate 25 MG Tablet PO ×2 (09:06→21:13)
[2021-10-20] MEDS: Potassium Chloride Oral Tablet 20 MEQ 60 MEQ PO ×2 (09:07→17:15)
[2021-10-20] MEDS: amLODIPine 5 MG Tablet PO (10:39)
--- NOTE | 2021-10-20 11:04 | PCM.PN.HOSP ---
Subjective Subjective Patient states that the frequency of her stools has decreased however they remain fairly watery. She states she still feels bloated but crampy abdominal pain has improved. She indicates that she has a lot of anxiety and worries about a lot of things. Her 2 years ago and it seems that she is having some complicated grief related to this. She is concerned about going home and having stooling accidents secondary to her diarrhea. 3 bowel movements so far today. Objective Data Objective Data Vital Signs: Vital Signs Temp Pulse Resp BP Pulse Ox 97.9 F 99 16 152/92 H 97 10/20/21 08:54 10/20/21 09:06 10/20/21 08:54 10/20/21 08:54 10/20/21 08:54 Oxygen Delivery Method Room Air Weight: 60.9 kg Body Mass Index (BMI) 23.8 Intake & Output: Intake and Output for Last 24 Hours 10/18/21 10/19/21 10/20/21 23:59 23:59 23:59 Intake Total 4223.3333 / 4223.3333 2949.8333 / 3049.8333 1145 / 1145 Balance 4223.3333 / 4223.3333 2949.8333 / 3049.8333 1145 / 1145 Lab / Micro Data Result Diagrams: 10/20/21 07:44 10/20/21 07:44 Labs: Laboratory Results - last 24 hr 10/20/21 07:44: WBC 15.9 H, RBC 3.73 L, Hgb 12.3, Hct 37.2, MCV 99.7 H, MCH 33.0 H, MCHC 33.1, RDW Std Deviation 48.8 H, RDW Coeff of Deanne 13.2, Plt Count 225, MPV 11.2, Immature Gran % (Auto) 2.100 H, Neut % (Auto) 82.4 H, Lymph % (Auto) 7.8 L, [place] % (Auto) 3.8, Eos % (Auto) 3.5, Baso % (Auto) 0.4, Absolute Neuts (auto) 13.1 H, Absolute Lymphs (auto) 1.23, Nucleated RBC % 0 10/20/21 07:44: Sodium 140, Potassium 3.2 L, Chloride 111 H, Carbon Dioxide 23.0, Anion Gap 6, BUN 9, Creatinine 0.82, Estim Creat Clear Calc 51.30, Est GFR (MDRD) Af Amer 88, Est GFR (MDRD) Non-Af 72, BUN/Creatinine Ratio 10.9, Glucose 113 H, Calcium 6.6 L Micro: Microbiology 10/16/21 13:55 Blood Culture (Wb) - Right Wrist Blood Culture - Preliminary No growth in 48 hours. 10/16/21 13:45 Blood Culture (Wb) - Left Hand Blood Culture - Preliminary No growth in 48 hours. 10/16/21 11:03 Stool Enteric Bacteriology - Final 10/16/21 11:03 Stool C. difficile GDH Antigen & Toxins - Final Toxigenic C. difficile 10/16/21 11:03 Stool C. difficile DNA Amplification - Final 10/16/21 11:03 Stool Stool Lactoferrin - Final 10/16/21 11:03 Stool Stool Occult Blood (SUJIT) - Final Occult Blood Positive Physical Exam Const alert, oriented x3, no apparent distress and average body habitus Constitutional Narrative: Older white female sitting up on the edge of the bed, appears comfortable and nontoxic at this time, just returned from the bathroom Exam Limitations: no limitations HEENT head/scalp atraumatic and moist oral mucous membranes HEENT Narrative: Dentition is fair, Mallampati is 2, no thrush Head and Scalp: normocephalic Resp normal respiratory effort, no retractions, no use of accessory muscles and clear to auscultation bilaterally Auscultation: Negative for crackles, rales, rhonchi or wheezes Cardio regular rate, regular rhythm, S1 normal heart sound, S2 normal heart sound, no murmurs, no rub, no gallops, no clicks and no JVD GI soft to palpation and non-distended; Negative for hepatosplenomegaly GI Narrative: Bowel sounds are hyperactive, mild diffuse tenderness with no point tenderness noted Extremity no clubbing, cyanosis or edema Peripheral Pulses: Yes pulses 2+ throughout Neuro oriented x3, moves all extremities and no focal motor deficits Sensorium / Orientation: awake and alert Speech: speech normal Psych Mood & Affect: anxious Assessment & Plan Assessment/Plan (1) C. difficile colitis: (2) Hypokalemia: (3) Hypophosphatemia: (4) Hypocalcemia: (5) Leukocytosis: (6) Sepsis: PLAN: Sepsis secondary to acute infectious C. difficile colitis -On admission patient had pancolitis with hypotension, leukocytosis, EMA -CT of her abdomen pelvis showed inflammation of her entire colon -Stool C. difficile was positive for antigen/toxin and PCR positive -Enteric panel is negative -Continue oral vancomycin 500 mg p.o. every 6 hours plus IV Flagyl 500 mg every 12 hours -Unclear at this time how long she will need dual therapy however will discuss with gastroenterology -Question Dificid at discharge -Her white count continues to decrease -Diarrhea frequency is improving however still fairly watery -Did discuss with the patient that she would likely have diarrhea for some time given the changes in her gut microbial carrie -Appreciate gastroenterology input Hypokalemia -Oral potassium supplementation added -Repeat K in a.m. Hypophosphatemia -Was replaced however repeat lab not assessed -Repeat Phos in a.m. Hypocalcemia -Calcium level 6.6 however when corrected for albumin corrects to normal level -Continue to monitor Leukocytosis -Secondary to infectious C. difficile colitis -Trending down with treatment -continue to monitor Hypothyroidism -Continue levothyroxine Hypertension -Patient is on metoprolol as a substitute for bisoprolol -Hold diuretic with continued diarrhea -Add Norvasc 5 mg daily Hyperlipidemia -Continue pravastatin Depression/anxiety -Continue antidepressants -Continue home Klonopin DVT prophylaxis -Patient had heme positive stools and therefore chemoprophylaxis was discontinued -Hemoglobin is stable and I suspect this is related to her severe C. difficile colitis -Will restart twice daily heparin and discontinue if any drop in her hemoglobin is identified -Continue bilateral lower extremity SCDs CODE STATUS -DNR CCA with no intubation Charges/Coding Visit Charges Inpatient E&M: 04263 Subs Hosp L2
[2021-10-20] MEDS: oxyCODONE 5 MG Tablet PO (12:07)
--- NOTE | 2021-10-20 12:15 | CASEMGMT ---
Physician reported patient was depressed. SW met with patient. Introduced self and role at [facility]. SW explained SW was checking on patient in regards to being depressed. Patient confirmed she is depressed. Her and she has to go home alone. Patient is afraid something like this will happen again. SW asked patient if she would like counseling resources and patient declined. Patient shared a little bit about her current situation. SW listened and provided emotional support. Patient did accept a pamphlet on [facility]. Patient said she is on an antidepressant and feels it is helping. Radha Bailey [employer]
[2021-10-20] MEDS: Metoprolol Tartrate 5 MG/5 ML Vial IV (12:50)
--- NOTE | 2021-10-20 18:58 | PN_ITS ---
Subjective Subjective Patient does not seem as confused as she was previously. She is still having a lot of watery diarrhea. Her nausea is a lot better and she is able to eat some. Objective Data Objective Data Vital Signs: Vital Signs Temp Pulse Resp BP Pulse Ox 97.8 F 118 H 16 106/76 97 10/20/21 13:54 10/20/21 17:53 10/20/21 13:54 10/20/21 13:54 10/20/21 13:54 Oxygen Delivery Method Room Air Weight: 134 lb 4.184 oz Body Mass Index (BMI) 23.8 Intake & Output: Intake and Output for Last 24 Hours 10/18/21 10/19/21 10/20/21 23:59 23:59 23:59 Intake Total 4223.3333 / 4223.3333 2949.8333 / 3049.8333 1245 / 1245 Balance 4223.3333 / 4223.3333 2949.8333 / 3049.8333 1245 / 1245 Lab / Micro Data Result Diagrams: 10/20/21 07:44 10/20/21 07:44 Labs: Laboratory Results - last 24 hr 10/20/21 07:44: WBC 15.9 H, RBC 3.73 L, Hgb 12.3, Hct 37.2, MCV 99.7 H, MCH 33.0 H, MCHC 33.1, RDW Std Deviation 48.8 H, RDW Coeff of Deanne 13.2, Plt Count 225, MPV 11.2, Immature Gran % (Auto) 2.100 H, Neut % (Auto) 82.4 H, Lymph % (Auto) 7.8 L, [place] % (Auto) 3.8, Eos % (Auto) 3.5, Baso % (Auto) 0.4, Absolute Neuts (auto) 13.1 H, Absolute Lymphs (auto) 1.23, Nucleated RBC % 0 10/20/21 07:44: Sodium 140, Potassium 3.2 L, Chloride 111 H, Carbon Dioxide 23.0, Anion Gap 6, BUN 9, Creatinine 0.82, Estim Creat Clear Calc 51.30, Est GFR (MDRD) Af Amer 88, Est GFR (MDRD) Non-Af 72, BUN/Creatinine Ratio 10.9, Glucose 113 H, Calcium 6.6 L Micro: Microbiology 10/16/21 13:55 Blood Culture (Wb) - Right Wrist Blood Culture - Preliminary No growth in 48 hours. 10/16/21 13:45 Blood Culture (Wb) - Left Hand Blood Culture - Preliminary No growth in 48 hours. 10/16/21 11:03 Stool Enteric Bacteriology - Final 10/16/21 11:03 Stool C. difficile GDH Antigen & Toxins - Final Toxigenic C. difficile 10/16/21 11:03 Stool C. difficile DNA Amplification - Final 10/16/21 11:03 Stool Stool Lactoferrin - Final 10/16/21 11:03 Stool Stool Occult Blood (SUJIT) - Final Occult Blood Positive Physical Exam Const alert General Appearance: cooperative Orientation / Consciousness: oriented to person HEENT hearing grossly normal bilaterally Head and Scalp: normal to inspection Face and Sinus: face symmetric Nose: external nose normal Mouth: oral and palatal mucosa normal Eyes conjunctivae normal General Eye: normal appearance of both eyes Neck full ROM General: normal visual inspection Lymph Lymphatic: no lymphadenopathy noted Chest inspection of chest normal and palpation of chest normal Chest: symmetrical chest wall rise Resp normal respiratory effort Effort and Inspection: able to speak in complete sentences Cardio regular rate GI non-distended Percussion: normal to percussion Rectal Exam: deferred Neuro Speech: speech normal Gait (Neuro): normal gait Assessment & Plan Assessment/Plan (1) C. difficile colitis: PLAN: Severe C. difficile colitis on vancomycin 5 mg p.o. every 6 hours and IV Flagyl. Her white count is decreasing nicely. She is still having a lot of diarrhea. I will give her colestipol 2 g p.o. twice daily for her diarrhea. This will have to be spaced two hours away from the vancomycin. Repeat ESR and CRP. Keep magnesium above 1.8 as it can cause malabsorptive issues if it is below 1.8. Charges/Coding Visit Charges Inpatient E&M: 90672 Subs Hosp L2
[2021-10-20] MEDS: Amitriptyline 25 MG Tablet 50 MG PO (21:12)
[2021-10-20] MEDS: Heparin Injection (Vial) 5,000 UNIT/ML VIAL 5000 UNIT SC (21:12)
[2021-10-21] VITALS (10 sets, daily range): BP systolic 134–157; BP diastolic 86–95; PULSE 88–110; RESP 16–18; TEMP 36.6–37.1; O2SAT 95–99
[2021-10-21 06:20] LABS: Absolute Lymphocyte Count 1.68 X10^3/uL (0.83-4.51); Absolute Neutrophil Count 13.3 X10^3/uL (2.0-7.7); Basophil# 0.11 X10^3/uL; Basophil% 0.6 % (0-1); Eosinophil# 0.71 X10^3/uL; Eosinophils% 4.2 % (0-5); Hematocrit 35.7 % (37-47); Hemoglobin 11.6 g/dL (12.0-15.0); Lymphocyte # 1.68 X10^3/ul (0.83-4.51); Lymphocyte % 9.9 % (19-41); Mean Corp Hgb Conc 32.5 g/dL (32-36); Mean Corpuscular Hgb 32.6 pg (27.0-32.0); Mean Corpuscular Volume 100.3 fL (81-99); Mean Platelet Vol. 11.4 fl (6.2-12.0); Monocyte# 0.85 X10^3/uL; NRBC Flagged by Analyzer 0 % (0-5); Neutrophil # 13.32 X10^3/uL (2.7-7.7); Neutrophil % 78.4 % (47-70); Platelet Count 253 K/mm3 (150-450); RBC Distribution Width CV 13.3 % (11.6-14.6); RBC Distribution Width SD 49.8 fl (35.1-43.9); Red Blood Count 3.56 M/mm3 (4.2-5.4)
[2021-10-21] MEDS: Vancomycin 125 MG/5 ML Susp PO.SYRINGE 500 MG PO ×3 (06:39→17:15)
[2021-10-21] MEDS: Levothyroxine 50 MCG Tablet PO (06:39)
[2021-10-21] MEDS: 0.9% Saline Lock 10 ML Syringe IV (06:39)
[2021-10-21] MEDS: clonazePAM 1 MG Tablet PO ×3 (06:47→21:57)
[2021-10-21] MEDS: Acetaminophen 325 MG Tablet 650 MG PO ×3 (06:47→21:58)
[2021-10-21 06:56] LABS: Anion Gap 10 (5-15); BUN 8 mg/dL (7-18); BUN/Creat Ratio 10.4 RATIO (10-20); Calcium,Total 6.8 mg/dL (8.5-10.1); Chloride 110 mmol/L (98-107); Creatinine, Serum 0.77 mg/dL (0.55-1.02); EST Glomerular Filtration Rate 78 mL/min (>60); Est Glom Filt Rate - Afr Amer 95 mL/min (>60); Estimated Creatinine Clearance 42.07 ml/min; Glucose 100 mg/dL (74-106); Potassium 3.4 mmol/L (3.5-5.1); Sodium Level 141 mmol/L (136-145)
[2021-10-21 07:31] LABS: Phosphorus 1.5 mg/dL (2.5-4.9)
--- NOTE | 2021-10-21 08:07 | PN_ITS ---
Subjective Subjective She is still having some crampy abdominal pain. She is having only mild nausea. She denies any chest pain or shortness of breath. Her stools are starting to thicken up. Objective Data Objective Data Vital Signs: Vital Signs Temp Pulse Resp BP Pulse Ox 98.8 F 93 18 157/89 H 95 10/21/21 05:30 10/21/21 05:30 10/21/21 05:30 10/21/21 05:30 10/21/21 07:28 Oxygen Delivery Method Room Air Weight: 134 lb 4.184 oz Body Mass Index (BMI) 23.8 Intake & Output: Intake and Output for Last 24 Hours 10/19/21 10/20/21 10/21/21 23:59 23:59 23:59 Intake Total 2949.8333 / 3049.8333 1345 / 1345 Balance 2949.8333 / 3049.8333 1345 / 1345 Lab / Micro Data Result Diagrams: 10/21/21 06:00 10/21/21 06:00 Labs: Laboratory Results - last 24 hr 10/20/21 07:44: Sodium 140, Potassium 3.2 L, Chloride 111 H, Carbon Dioxide 23.0, Anion Gap 6, BUN 9, Creatinine 0.82, Estim Creat Clear Calc 51.30, Est GFR (MDRD) Af Amer 88, Est GFR (MDRD) Non-Af 72, BUN/Creatinine Ratio 10.9, Glucose 113 H, Calcium 6.6 L 10/21/21 06:00: Sodium 141, Potassium 3.4 L, Chloride 110 H, Carbon Dioxide 21. 0, Anion Gap 10, BUN 8, Creatinine 0.77, Estim Creat Clear Calc 42.07, Est GFR (MDRD) Af Amer 95, Est GFR (MDRD) Non-Af 78, BUN/Creatinine Ratio 10.4, Glucose 100, Calcium 6.8 L 10/21/21 06:00: Phosphorus 1.5 L 10/21/21 06:00: WBC 17.0 H, RBC 3.56 L, Hgb 11.6 L, Hct 35.7 L, MCV 100.3 H, MCH 32.6 H, MCHC 32.5, RDW Std Deviation 49.8 H, RDW Coeff of Deanne 13.3, Plt Count 253, MPV 11.4, Immature Gran % (Auto) 1.900 H, Neut % (Auto) 78.4 H, Lymph % (Auto) 9.9 L, [place] % (Auto) 5.0, Eos % (Auto) 4.2, Baso % (Auto) 0.6, Absolute Neuts (auto) 13.3 H, Absolute Lymphs (auto) 1.68, Nucleated RBC % 0 Micro: Microbiology 10/16/21 13:55 Blood Culture (Wb) - Right Wrist Blood Culture - Preliminary No growth in 48 hours. 10/16/21 13:45 Blood Culture (Wb) - Left Hand Blood Culture - Preliminary No growth in 48 hours. 10/16/21 11:03 Stool Enteric Bacteriology - Final 10/16/21 11:03 Stool C. difficile GDH Antigen & Toxins - Final Toxigenic C. difficile 10/16/21 11:03 Stool C. difficile DNA Amplification - Final 10/16/21 11:03 Stool Stool Lactoferrin - Final 10/16/21 11:03 Stool Stool Occult Blood (SUJIT) - Final Occult Blood Positive Physical Exam Const alert General Appearance: cooperative Orientation / Consciousness: oriented to person HEENT hearing grossly normal bilaterally Head and Scalp: normal to inspection Face and Sinus: face symmetric Nose: external nose normal Mouth: oral and palatal mucosa normal Eyes conjunctivae normal General Eye: normal appearance of both eyes Neck full ROM General: normal visual inspection Lymph Lymphatic: no lymphadenopathy noted Chest inspection of chest normal and palpation of chest normal Chest: symmetrical chest wall rise Resp normal respiratory effort Effort and Inspection: able to speak in complete sentences Cardio regular rate GI non-distended Percussion: normal to percussion Rectal Exam: deferred Neuro Speech: speech normal Gait (Neuro): normal gait Assessment & Plan Assessment/Plan (1) Leukocytosis: PLAN: Her white blood cell count increased for the first time since her admission. It could possibly just be secondary to a leukemoid reaction. However she does have severe C. difficile colitis. Her last x-ray did not show any colonic dilation. She should not get the colestipol near her vancomycin as it will stop absorption of the vancomycin. If her white cell count continues to go up then she will have to be switched to Lomotil.I will order repeat CT scan abdomen pelvis since its been 5 days since she had a CT scan.I will also order repeat ESR, CRP. (2) C. difficile colitis: PLAN: Continue oral vancomycin and IV Flagyl. Charges/Coding Visit Charges Inpatient E&M: 86843 Subs Hosp L3
--- NOTE | 2021-10-21 08:10 | CT_ITS ---
STUDY: CT ABDOMEN AND PELVIS WITH CONTRAST REASON FOR EXAM: Female, 71 years old. C. difficile colitis SEVERE DIARRHEA WITH HYPOTENSION, HTN, CKD RADIATION DOSAGE (If Supplied By Facility): CTDIvol = ( 10.93 ) mGy, DLP = ( 537.85 ) mGycm TECHNIQUE: Transaxial images were obtained from the dome of the diaphragm to the symphysis pubis without oral contrast. IV 100mL Isovue-300 was administered. Sagittal and coronal images were reconstructed. Individualized dose optimization techniques were used for this CT. COMPARISON: CT of abdomen and pelvis dated OCTOBER 16, 2021 FINDINGS: The visualized lung bases are unremarkable. The visualized portions of the heart are within normal limits. Normal liver. Normal gallbladder and extrahepatic biliary system. Normal spleen. Normal pancreas. Normal bilateral adrenal glands. There is severe cortical atrophy of the right kidney, consistent with chronic medical renal disease. There is mild cortical atrophy of the left kidney, consistent with chronic medical renal disease. Normal visualized stomach. Normal small intestine. Moderate thickening and edema of the wall of the entire colon down to the rectum is consistent with a diffuse colitis. A small amount of pelvic ascites is also present. No visualized free air or abscess. Multiple colonic diverticula are present. The appendix is visualized and appears normal. 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 Normal inferior vena cava. Normal retroperitoneum. Normal urinary bladder. Normal abdominal wall. There are diffuse degenerative changes of the visualized lumbar spine. CT/Abdomen/Pelvis W IV Cont ONLY IMPRESSION: 1. Moderate thickening and edema of the wall of the entire colon down to the rectum is consistent with a diffuse colitis. A small amount of pelvic ascites is also present. No visualized free air or abscess. Multiple colonic diverticula are present. 2. Slight interval worsening since the previous study. Electronically Signed: Faustino Richardson MD at 9:41 EDT ,
[2021-10-21 08:59] LABS: Erythrocyte Sedimentation Rate 31 mm/hr (0-30)
[2021-10-21] MEDS: Potassium Chloride Oral Tablet 20 MEQ 60 MEQ PO (10:31)
[2021-10-21] MEDS: DULoxetine Hcl 60 MG Capsule PO (10:34)
[2021-10-21] MEDS: Sertraline 100 MG Tablet PO (10:34)
[2021-10-21] MEDS: Metoprolol Tartrate 25 MG Tablet PO ×2 (10:37→22:16)
[2021-10-21] MEDS: Pravastatin 40 MG Tablet PO (10:37)
[2021-10-21] MEDS: amLODIPine 10 MG Tablet PO (10:37)
[2021-10-21] MEDS: Heparin Injection (Vial) 5,000 UNIT/ML VIAL 5000 UNIT SC ×2 (10:38→22:00)
--- NOTE | 2021-10-21 12:23 | PN.HOSP_ITS ---
Subjective Subjective States overall she is feeling better. Only 2 bowel movements through the night and 5 total yesterday. Both bowel movements at night were early in the shift. Patient has no significant abdominal pain although she states she just diffusely uncomfortable however her symptoms have improved. Patient did have an asym ptomatic episode of atrial fibrillation yesterday afternoon which resolved spontaneously. She was given 5 mg of IV metoprolol for heart rate control. She remains in normal sinus rhythm this morning. Objective Data Objective Data Vital Signs: Vital Signs Temp Pulse Resp BP Pulse Ox 97.9 F 93 16 134/86 H 97 10/21/21 10:20 10/21/21 10:37 10/21/21 10:20 10/21/21 10:20 10/21/21 10:20 Oxygen Delivery Method Room Air Weight: 60.9 kg Body Mass Index (BMI) 23.8 Intake & Output: Intake and Output for Last 24 Hours 10/19/21 10/20/21 10/21/21 23:59 23:59 23:59 Intake Total 2949.8333 / 3049.8333 1345 / 1345 100 / 100 Balance 2949.8333 / 3049.8333 1345 / 1345 100 / 100 Lab / Micro Data Result Diagrams: 10/21/21 06:00 10/21/21 06:00 Labs: Laboratory Results - last 24 hr 10/21/21 06:00: Sodium 141, Potassium 3.4 L, Chloride 110 H, Carbon Dioxide 21.0, Anion Gap 10, BUN 8, Creatinine 0.77, Estim Creat Clear Calc 42.07, Est GFR (MDRD) Af Amer 95, Est GFR (MDRD) Non-Af 78, BUN/Creatinine Ratio 10.4, Glucose 100, Calcium 6.8 L 10/21/21 06:00: Phosphorus 1.5 L 10/21/21 06:00: WBC 17.0 H, RBC 3.56 L, Hgb 11.6 L, Hct 35.7 L, MCV 100.3 H, MCH 32.6 H, MCHC 32.5, RDW Std Deviation 49.8 H, RDW Coeff of Deanne 13.3, Plt Count 253, MPV 11.4, Immature Gran % (Auto) 1.900 H, Neut % (Auto) 78.4 H, Lymph % (Auto) 9.9 L, [place] % (Auto) 5.0, Eos % (Auto) 4.2, Baso % (Auto) 0.6, Absolute Neuts (auto) 13.3 H, Absolute Lymphs (auto) 1.68, Nucleated RBC % 0 10/21/21 06:00: ESR 31 H 10/21/21 06:00: C-React Prot Ext Range 51.60 H Micro: Microbiology 10/16/21 13:55 Blood Culture (Wb) - Right Wrist Blood Culture - Preliminary No growth in 48 hours. 10/16/21 13:45 Blood Culture (Wb) - Left Hand Blood Culture - Preliminary No growth in 48 hours. 10/16/21 11:03 Stool Enteric Bacteriology - Final 10/16/21 11:03 Stool C. difficile GDH Antigen & Toxins - Final Toxigenic C. difficile 10/16/21 11:03 Stool C. difficile DNA Amplification - Final 10/16/21 11:03 Stool Stool Lactoferrin - Final 10/16/21 11:03 Stool Stool Occult Blood (SUJIT) - Final Occult Blood Positive Radiography Diagnostic Testing: Radiology Impression Abdomen/Pelvis CT 10/21/21 08:10 IMPRESSION: 1. Moderate thickening and edema of the wall of the entire colon down to the rectum is consistent with a diffuse colitis. A small amount of pelvic ascites is also present. No visualized free air or abscess. Multiple colonic diverticula are present. 2. Slight interval worsening since the previous study. Electronically Signed: Faustino Richardson MD at 9:41 EDT Reading Location ID and State: [address] [place] [address] , Service support , Physical Exam Const alert, oriented x3, no apparent distress and average body habitus Constitutional Narrative: Older white female sitting up on the lying in bed, watching television and awaiting breakfast, appears as if she is feeling much better, less emotionally labile today Exam Limitations: no limitations HEENT head/scalp atraumatic and moist oral mucous membranes HEENT Narrative: Mallampati is 2, no thrush Head and Scalp: normocephalic Resp normal respiratory effort, no retractions, no use of accessory muscles and clear to auscultation bilaterally Auscultation: Negative for crackles, rales, rhonchi or wheezes Cardio regular rate, regular rhythm, S1 normal heart sound, S2 normal heart sound, no murmurs, no rub, no gallops, no clicks and no JVD GI normal to inspection, nondistended, normoactive bowel sounds, soft to palpation and non-distended; Negative for hepatosplenomegaly GI Narrative: Mild diffuse tenderness Extremity no clubbing, cyanosis or edema Peripheral Pulses: Yes pulses 2+ throughout Neuro oriented x3, moves all extremities and no focal motor deficits Sensorium / Orientation: awake and alert Speech: speech normal Psych Psych Narrative: Patient much less emotionally labile today, appropriately interactive but remains baseline anxious Assessment & Plan Assessment/Plan (1) C. difficile colitis: (2) Hypokalemia: (3) Hypophosphatemia: (4) Leukocytosis: (5) Sepsis: PLAN: Sepsis secondary to acute infectious C. difficile colitis -On admission patient had pancolitis with hypotension, leukocytosis, EMA -CT of her abdomen pelvis showed inflammation of her entire colon -Stool C. difficile was positive for antigen/toxin and PCR positive -Enteric panel is negative -Continue oral vancomycin 500 mg p.o. every 6 hours plus IV Flagyl 500 mg every 12 hours -Upon discharge we will discontinue the IV Flagyl but maintain her on oral vancomycin at 500 mg 4 times daily for 30 days and then switch to a 6-week vancomycin taper given the severity of disease on presentation -Inflammatory markers are trending down -Her white blood cell count is overall stable but still elevated -Patient with persistent loose stools however frequency was 5 bouts yesterday -Did discuss with the patient that she would likely have diarrhea for some time given the changes in her gut microbial carrie -CT of the abdomen pelvis pending today -Appreciate gastroenterology input Hypokalemia -Repeat oral potassium supplementation added -Repeat K in a.m. Hypophosphatemia -Phosphorus remains low and therefore 30 mmol of phosphorus were given today -Repeat Phos in a.m. Leukocytosis -Secondary to infectious C. difficile colitis -Stabilized but still elevated -continue to monitor Hypothyroidism -Continue levothyroxine Hypertension -Patient is on metoprolol as a substitute for bisoprolol -Hold diuretic with continued diarrhea -Add Norvasc 5 mg daily PAF -continue metoprolol -Suspect acute issues with PAF are related to the severity of her sepsis -Short bout of AF yesterday that resolved spontaneously -Unable to anticoagulate at this time given the severity of her bowel disease on presentation -Have her follow-up with cardiology as an outpatient after discharge for atrial fibrillation and decide upon anticoagulation at that time but at this time she is high risk for bleeding with the severity of her colitis from C. difficile -Currently in normal sinus rhythm Hyperlipidemia -Continue pravastatin Depression/anxiety -Continue antidepressants -Continue home Klonopin DVT prophylaxis -Patient had heme positive stools and therefore chemoprophylaxis was discontinued -Hemoglobin remained sofie relatively stable -Repeat CBC in a.m. -Continue twice daily subcu heparin for DVT prophylaxis -Continue bilateral lower extremity SCDs CODE STATUS -DNR CCA with no intubation Charges/Coding Visit Charges Inpatient E&M: 94943 Subs Hosp L2
[2021-10-21] MEDS: oxyCODONE 5 MG Tablet PO (21:58)
[2021-10-21] MEDS: Amitriptyline 25 MG Tablet 50 MG PO (21:59)
[2021-10-22] VITALS (7 sets, daily range): BP systolic 122–147; BP diastolic 85–92; PULSE 86–109; RESP 18; TEMP 36.5–37.1; O2SAT 95–98
[2021-10-22] MEDS: Vancomycin 125 MG/5 ML Susp PO.SYRINGE 500 MG PO ×3 (00:08→13:23)
[2021-10-22 05:41] LABS: Absolute Lymphocyte Count 2.04 X10^3/uL (0.83-4.51); Basophil# 0.08 X10^3/uL; Basophil% 0.5 % (0-1); Eosinophil# 0.97 X10^3/uL; Eosinophils% 5.6 % (0-5); Hematocrit 34.9 % (37-47); Hemoglobin 11.4 g/dL (12.0-15.0); Lymphocyte # 2.04 X10^3/ul (0.83-4.51); Lymphocyte % 11.8 % (19-41); Mean Corp Hgb Conc 32.7 g/dL (32-36); Mean Corpuscular Hgb 32.5 pg (27.0-32.0); Mean Corpuscular Volume 99.4 fL (81-99); Mean Platelet Vol. 11.1 fl (6.2-12.0); Monocyte# 0.98 X10^3/uL; Monocyte% 5.7 % (0-10); NRBC Flagged by Analyzer 0 % (0-5); Neutrophil # 12.97 X10^3/uL (2.7-7.7); Neutrophil % 74.7 % (47-70); Platelet Count 268 K/mm3 (150-450); RBC Distribution Width CV 13.3 % (11.6-14.6); RBC Distribution Width SD 48.8 fl (35.1-43.9); Red Blood Count 3.51 M/mm3 (4.2-5.4); White Blood Count 17.3 K/mm3 (4.4-11.0)
[2021-10-22] MEDS: Levothyroxine 50 MCG Tablet PO (06:14)
[2021-10-22 06:49] LABS: Anion Gap 10 (5-15); BUN 4 mg/dL (7-18); BUN/Creat Ratio 6.2 RATIO (10-20); Chloride 106 mmol/L (98-107); Creatinine, Serum 0.65 mg/dL (0.55-1.02); EST Glomerular Filtration Rate 95 mL/min (>60); Est Glom Filt Rate - Afr Amer 115 mL/min (>60); Estimated Creatinine Clearance 42.07 ml/min; Glucose 105 mg/dL (74-106); Potassium 3.2 mmol/L (3.5-5.1); Sodium Level 139 mmol/L (136-145)
[2021-10-22 07:02] LABS: Phosphorus 2.3 mg/dL (2.5-4.9)
[2021-10-22] MEDS: Pravastatin 40 MG Tablet PO (09:06)
[2021-10-22] MEDS: Sertraline 100 MG Tablet PO (09:06)
[2021-10-22] MEDS: Pantoprazole Sodium 40 MG Tablet PO (09:06)
[2021-10-22] MEDS: amLODIPine 10 MG Tablet PO (09:06)
[2021-10-22] MEDS: Metoprolol Tartrate 25 MG Tablet PO (09:06)
[2021-10-22] MEDS: Potassium Chloride Oral Tablet 20 MEQ 60 MEQ PO (09:07)
[2021-10-22] MEDS: Heparin Injection (Vial) 5,000 UNIT/ML VIAL 5000 UNIT SC (09:07)
[2021-10-22] MEDS: DULoxetine Hcl 60 MG Capsule PO (09:07)
--- NOTE | 2021-10-22 10:51 | DS.PCM_ITS ---
Providers Date of Admission: 10/16/21 Date of Discharge: 10/22/21 Primary Care Physician: Dr. Maxwell Mabry, Consultations 10/16/21 11:54 Consult: Gastroenterology Routine Consulting Provider: [facility] Reason for Consult: diffuse colitiis with GI bleed EMERGENT Consult: No MD Notified: Yes Date Notified: 10/16/21 Time Notified: 11:47 Method of Notification: Verbal Reason For Visit: SEVERE DIARRHEA WITH HYPOTENSION Diagnosis Discharge Diagnosis (1) C. difficile colitis: Status: Acute Code(s): A04.72 - Enterocolitis due to Clostridium difficile, not specified as recurrent (2) Hypokalemia: Status: Acute Code(s): E87.6 - Hypokalemia (3) Hypophosphatemia: Status: Acute Code(s): E83.39 - Other disorders of phosphorus metabolism (4) Leukocytosis: Status: Acute Code(s): D72.829 - Elevated white blood cell count, unspecified (5) Sepsis: Status: Acute Code(s): A41.9 - Sepsis, unspecified organism Medications at Discharge Home Medications amitriptyline 75 mg PO QHS 06/12/13 clonazepam [Klonopin] 2 mg PO TID 06/12/13 levothyroxine 50 mcg PO DAILY 06/12/13 sertraline 100 mg PO DAILY 06/12/13 Duloxetine Hcl 60 mg PO DAILY 09/07/15 pravastatin 40 mg PO DAILY 09/07/15 amlodipine 5 mg PO DAILY #15 tab 10/22/21 colestipol [Colestid] 2 g PO DAILY #30 tab 10/22/21 metoprolol tartrate 50 mg PO BID #60 tab 10/22/21 pantoprazole 40 mg PO DAILY #30 tab 10/22/21 vancomycin [Firvanq] 500 mg PO Q6 #2400 ml 10/22/21 Hospital Course Operations None Procedures None Summary of Care Provided Minutes Spent on Discharge: 39 Hospital Course: Mrs. Taylor is a 71-year-old white female who presented to the emergency department on 10/16/2021 with a chief complaint of diarrhea and abdominal pain that had been progressively worsening for 4 days. The patient denied a history of previous GI issues. She reported on admission that whenever she ate she got loose watery bowel movements and is having them every 1-2 hours. She also complained abdominal pain that was predominantly at the left side but diffuse and nonspecific. She had some mild nausea and dry heaves but no imaging. She reported that her stool is liquid in consistency and greenish/dark in color. She denied any recent antibiotic use but did indicate she had surgery on her back with a neurotransmitter that was placed 3 weeks prior to presentation. I do suspect she got preoperative antibiotics at that time. On admission her blood pressure was 88/65 but she did respond to volume resuscitation with blood pressure prior to admission at 128/87. She had a marked leukocytosis at 37.4 with a significant left shift. Her BUN and creatinine were markedly elevated. Her lactic acid was normal. A CT of her abdomen pelvis was done without oral or IV contrast that reported severe wall thickening and stranding in the surrounding fat of the entire colon consistent with colitis. There were no loculated fluid collections or abscesses. The patient was given 2 L of normal saline and admitted to the medical floor. Stool cultures/enteric pathogen/C. difficile panel was sent prior to admission. Gastroenterology was consulted and suggested the initiation of empiric oral vancomycin and IV Flagyl. Her C. difficile toxin and PCR were both positive. She was maintained on oral vancomycin 500 mg p.o. every 6 hours plus IV Flagyl 500 mg every 12 hours. Serial abdominal exams were performed and KUBs. Her KUB did not show any significant bowel dilatation. Inflammatory markers with ESR and CRP were obtained during her hospitalization and trended down slowly over time however they were markedly elevated on presentation. On 10/18/2021 the patient developed some paroxysmal atrial fibrillation that lasted up a short period of time. She had been on a beta-hansel at home and this had been held given her blood pressure on admission. She was restarted on metoprolol 25 mg oral twice daily and this was uptitrated to 50 mg p.o. twice daily during her hospitalization. She had 2 brief episodes of paroxysmal atrial fibrillation during her hospital course. Anticoagulation was held as she did test guaiac positive but had stable hemoglobin during her hospitalization. We felt with the severity of her colitis and her positive guaiac test during her hospitalization that we needed to hold any anticoagulation until her colitis improved and recommended she follow-up with cardiology as an outpatient. Her diarrhea slowly improved to the point that prior to discharge she only had 2 bowel movements the day prior. Her stool was much less watery and more formed with markedly less frequency. She was tolerating a p.o. diet without any difficulty. She was evaluated by physical and Occupational Therapy during her hospital course and they did recommend some home health care for continued therapy upon discharge but felt that she was stable for home-going. She will also get home health care for nursing temporarily. She had significant electrolyte abnormalities during her hospital course which were repleted. This was likely related to her ongoing diarrhea early in her hospitalization. Upon conversation she did appear markedly depressed and seem to be suffering from complicated grief as her approximately 2 years ago and she appeared to be struggling with this still. She denied the need for any resources after discharge and stated that she felt that her antidepressant was helping overall. She was discharged with a prescription for continued vancomycin orally 500 mg every 6 hours for the next 30 days and then the plan is for her to follow-up with Dr. Muñoz at which time he will place her on a vancomycin taper. She was also discharged on colestipol 2 mg daily and this prescription was sent for 30 days. Her home bisproprolol/hydrochlorothiazide was discontinued during her hospitalization and she was placed on oral metoprolol as noted above as well as Norvasc 5 mg daily. Prescriptions for these were also sent to her pharmacy. It was recommended she follow-up with her primary care physician with 1 week and that she obtain a follow-up BMP with electrolytes of magnesium and phosphorus at that time. She is to follow-up with Dr. Muñoz within the next 2 weeks. She was referred to follow-up with cardiology as an outpatient for reevaluation of her paroxysmal atrial fibrillation and to make decisions with regards to anticoagulation. Discharge diagnoses: Sepsis secondary to acute infectious C. difficile colitis Hypokalemia Hypophosphatemia Leukocytosis-improving Hypothyroidism Hypertension PAF Hyperlipidemia Depression Anxiety Physical Exam Narrative Patient with only 2 bowel movements in the last 24 hours. She states she did have a large bowel movement this morning and while the stool is still loose is much more formed. Abdominal pain has improved but abdomen is finisher card tender. No significant issues overnight. Patient is very enthusiastic to go home today. Const alert, oriented x3, no apparent distress and average body habitus Constitutional Narrative: Older white female sitting up on the edge of the bed, nursing at bedside, patient appears comfortable and very jovial and interactive, appears as if she is feeling much better General Appearance: cooperative, comfortable, well kempt and well developed Orientation / Consciousness: awake Exam Limitations: no limitations HEENT normocephalic, head/scalp atraumatic, hearing grossly normal bilaterally and moist oral mucous membranes HEENT Narrative: Mallampati is 2, no thrush Eyes PERRL, EOMs intact bilaterally and conjunctivae normal Neck no lymphadenopathy, supple and no JVD Resp normal respiratory effort, no retractions, no use of accessory muscles and clear to auscultation bilaterally Auscultation: Negative for crackles, rales, rhonchi or wheezes Cardio regular rhythm, S1 normal heart sound, S2 normal heart sound, no murmurs, no rub, no gallops, no clicks and no JVD Cardio Narrative: Slight tachycardia with rates in the low 100s GI normal to inspection, nondistended, normoactive bowel sounds, soft to palpation and non-distended; Negative for hepatosplenomegaly GI Narrative: Mild diffuse tenderness but no specific point tenderness Extremity no clubbing, cyanosis or edema Skin no rashes or lesions noted, no wounds, skin turgor normal and no jaundice Neuro oriented x3, CN's II-XII intact bilaterally, moves all extremities and no focal motor deficits Sensorium / Orientation: awake and alert Speech: speech normal Psych affect normal Psych Narrative: Very pleasant and appropriately interactive today, mood much less labile and more positive Weight / BMI Weight Weight: 60.9 kg Body Mass Index (BMI) 23.8 ABG / Lab / Microbiology Data Result Diagrams: 10/22/21 05:29 10/22/21 05:29 Laboratory: Laboratory Results - last 24 hr 10/22/21 05:29: Sodium 139, Potassium 3.2 L, Chloride 106, Carbon Dioxide 23.0, Anion Gap 10, BUN 4 L, Creatinine 0.65, Estim Creat Clear Calc 42.07, Est GFR (MDRD) Af Amer 115, Est GFR (MDRD) Non-Af 95, BUN/Creatinine Ratio 6.2 L, Glucose 105, Calcium 6.0 L* 10/22/21 05:29: WBC 17.3 H, RBC 3.51 L, Hgb 11.4 L, Hct 34.9 L, MCV 99.4 H, MCH 32.5 H, MCHC 32.7, RDW Std Deviation 48.8 H, RDW Coeff of Deanne 13.3, Plt Count 268, MPV 11.1, Immature Gran % (Auto) 1.700 H, Neut % (Auto) 74.7 H, Lymph % (Auto) 11.8 L, [place] % (Auto) 5.7, Eos % (Auto) 5.6 H, Baso % (Auto) 0.5, Absolute Neuts (auto) 13.0 H, Absolute Lymphs (auto) 2.04, Nucleated RBC % 0 10/22/21 05:29: Phosphorus 2.3 L Microbiology: Microbiology 10/16/21 13:55 Blood Culture (Wb) - Right Wrist Blood Culture - Final No growth in 5 days. 10/16/21 13:45 Blood Culture (Wb) - Left Hand Blood Culture - Final No growth in 5 days. 10/16/21 11:03 Stool Enteric Bacteriology - Final 10/16/21 11:03 Stool C. difficile GDH Antigen & Toxins - Final Toxigenic C. difficile 10/16/21 11:03 Stool C. difficile DNA Amplification - Final 10/16/21 11:03 Stool Stool Lactoferrin - Final 10/16/21 11:03 Stool Stool Occult Blood (SUJIT) - Final Occult Blood Positive D/C Instructions Discharge Diet: [place] diet (Advance to normal diet as able-no specific restrictions-would avoid products high in lactose initially) and Low fat / Low cholesterol Discharge Activity: Return to Normal Activity Meaningful Use Info Meaningful Use Diagnoses (Choose all that apply): None applicable Discharge Plan Admission Admit Date/Time: 10/16/21 10:41 Primary Reason for Your Visit: Diarrhea and Abdominal pain Attending Provider: Devorah Weeks Primary Care Provider: Maxwell Mabry Instructions Patient Instructions: Tips for Lactose Intolerance Additional Instructions / Restrictions: 1. You may have issues with lactose intolerance after discharge. Please see the above tips for lactose intolerance. This should resolve with time and improvement in your C. difficile infection. 2. Please call for an appointment with Dr. Muñoz tomorrow 10/23/2021 to be seen in the next 2 weeks 3. Please follow-up with cardiology as directed below Discharge Orders/Prescriptions Prescriptions: New amlodipine 10 mg Tablet 5 mg PO DAILY Qty: 15 RF: 0 colestipol [Colestid] 1 gram Tablet 2 g PO DAILY Qty: 30 RF: 0 metoprolol tartrate 50 mg Tablet 50 mg PO BID Qty: 60 RF: 0 pantoprazole 40 mg Tablet,Delayed Release (Dr/Ec) 40 mg PO DAILY Qty: 30 RF: 0 Firvanq 25 mg/mL Recon Soln 500 mg PO Q6 Qty: 2400 RF: 0 Continued sertraline 100 MG tablet 100 mg PO DAILY RF: 0 amitriptyline 50 MG tablet 75 mg PO QHS RF: 0 levothyroxine 25 MCG tablet 50 mcg PO DAILY RF: 0 clonazepam [Klonopin] 2 MG tablet 2 mg PO TID RF: 0 pravastatin 40 MG tablet 40 mg PO DAILY RF: 0 Duloxetine Hcl 60 mg PO DAILY RF: 0 Discontinued bisoprolol-hydrochlorothiazide 1 TAB tablet 2 tab PO DAILY RF: 0 Referrals / Follow Up: Helio Muñoz DO [STAFF PHYSICIAN] - Within 2 Weeks (Hospital follow up for severe C-diff infection) Maxwell Mabry DO [Primary Care Provider] - 10/28/21 2:45 pm Shaila Lawson PA [PHYSICIAN CLIENT SERVICES ASSOCIATE] - Within 2 Weeks (Atrial Fibrillation) Disposition Disposition (needs filled in before D/C Order can be placed): Home Health Service Charges/Coding Visit Charges Inpatient E&M: 10206 Disch Hosp
--- NOTE | 2021-10-22 10:56 | CASEMGMT ---
Addendum entered by Allison Khan 10/22/21 11:04: Received tc back from Jessica, [facility] able to accept pt for SN, PT and OT to start on Wednesday. Pt aware. Original Note: SHADIA GOMEZ in to pt room following hospitalist, patient was provided a list of [facility] providers including quality and resource use data and consistent with the patient?s preferred geographic region, medical needs, and insurance network. The patient?s preferred provider is [facility] and Lana. TC to Jessica at [facility], referral made. Will await acceptance.
[2021-10-22] MEDS: clonazePAM 1 MG Tablet PO ×2 (10:58→15:50)
[2021-10-22] MEDS: Acetaminophen 325 MG Tablet 650 MG PO (10:58)
[2021-10-22] MEDS: oxyCODONE 5 MG Tablet PO (10:58)
--- NOTE | 2021-10-23 14:34 | CASEMGMT ---
SHADIA GOMEZ updated by charge nurse that patient's oral liquid vanco is going to cost $2000. Patient was calling to inquire if prescription could be changed to vanco capsule. RN CM called [facility] in [place] where prescription was filled. Per Radha, patient filled script for 2 day supply for $122. RN CM inquired what cost of capsules would be. Per Radha, capsules would need prior auth. RN JASON called [employer] to complete prior auth for vanco capsules. Prior auth completed over the phone and approved. Hospitalist Dr. Weeks updated regarding cost and request for vanco capsules. Hospitalist sent new order for vanco capsules to [facility]. RN CM called [facility] and cost for capsules is $830.44. RN CM called and updated the patient. Patient was agreeable to cost of capsules. Patient states her brother in law Gael would be picking up prescription and asked this RN CM to call Gael. Patient had no further questions or concerns. SHADIA GOMEZ called Gael and updated regarding new prescription and cost at [facility]. Gael stated he would pharmacy picking tech prescription for patient today. Gael had no further questions or concerns at this time. SHADIA GOMEZ updated charge nurse.
== END 2021-10-22 17:16 | disposition home health service (06) | DRG 871 ==
LOC: ED 10:52 → MS3 11:16
PROVIDERS: Family Medicine; Internal Medicine Gastroenterology; Nurse Practitioner; Admitting Provider Internal Medicine; Emergency Provider Emergency Medicine; PCP Preventive Medicine Occupational Medicine; Visit Provider Internal Medicine
DX: A41.4 Sepsis due to anaerobes (principal); N17.0 Acute kidney failure with tubular necrosis; A04.72 Enterocolitis due to Clostridium difficile, not specified as recurrent; E87.2 Acidosis; N18.4 Chronic kidney disease, stage 4 (severe); E87.1 Hypo-osmolality and hyponatremia; I48.0 Paroxysmal atrial fibrillation; E83.39 Other disorders of phosphorus metabolism; E86.0 Dehydration; E83.51 Hypocalcemia; I12.9 Hypertensive chronic kidney disease with stage 1 through stage 4 chronic kidney disease, or unspecified chronic kidney disease; F41.9 Anxiety disorder, unspecified; K21.9 Gastro-esophageal reflux disease without esophagitis; E03.9 Hypothyroidism, unspecified; F17.210 Nicotine dependence, cigarettes, uncomplicated; E87.6 Hypokalemia; E78.5 Hyperlipidemia, unspecified; D72.823 Leukemoid reaction; M51.16 Intervertebral disc disorders with radiculopathy, lumbar region; Z66 Do not resuscitate; F32.A Depression, unspecified; Z96.82 Presence of neurostimulator; Z79.01 Long term (current) use of anticoagulants; Z79.899 Other long term (current) drug therapy
CPT/HCPCS: 36415; 74019; 74176; 74177; 76705; 80048; 80076; 81002; 82140; 82274; 83605; 83615; 83630; 83735; 84100; 85025; 85610; 85652; 86140; 87040; 87493; 87506; 92526; 92610; 93005; 94640; 97110; 97162; 97166; 97530; 97535; 97802; 99285; 99406; J7040; J7050; J7120; Q9967; A4216; J0610; J2405; J7799

== ENCOUNTER 2022-02-16 12:24 | Emergency (ER) | payer MEDICARE, OTHER, SELFPAY ==
[2022-02-16 12:26] VITALS: BP 151/84; PULSE 63; RESP 13; TEMP 36.5; O2SAT 95; BMI 20.2
--- NOTE | 2022-02-16 12:27 | CM.ED ---
Susan from Crisis called. She said that she is following squad, with patient, to the ED. Susan said that patient reports active AH/VH and she is suspecting Alzheimer's Dementia. Patient was previously hospitalized for psych on January 15 to [facility] from [facility]. Susan is planning to pink slip patient. Patient is also confused about how to use a phone and would not be able to select certain simple words during the conversation. Patient has limited supports as all her family is in [place]. Patient did reports that she fell last night and hit her head on the nightstand and was reporting headache, neck hurting and blurred vision as well as going to the bathroom frequently. Patient denied having a UTI to Susan. Susan did the assessment but wanted to ensure that patient was medically cleared. Susan from [facility] is completing the [place] Slip for patient. RENE updated charge coordinator Pepper regarding patient's presentation. Ekaterina LAWRENCE
--- NOTE | 2022-02-16 13:03 | CT_ITS ---
STUDY: CT BRAIN WITHOUT CONTRAST REASON FOR EXAM: Female, 71 years old. History of fall. Hallucination. RADIATION DOSAGE (If Supplied By Facility): CTDIvol = ( 44.99 ) mGy, DLP = ( 782.05 ) mGycm TECHNIQUE: Transaxial CT imaging of the brain was performed without administration of intravenous contrast material. Individualized dose optimization techniques were used for this CT. COMPARISON: No relevant priors. FINDINGS: Normal soft tissue structures. Normal calvarium. There is mild cerebral atrophy with widening of the extra-axial spaces and ventricular dilatation. Normal white matter tracts of the cerebral hemispheres. Normal basal ganglia and thalami. Normal brainstem. Normal cerebellum. There is no intracranial hemorrhage. There are no findings of an acute ischemic infarction. Atherosclerotic calcification of the cavernous portions of the internal carotid arteries bilaterally. Normal visualized paranasal sinuses. CT/Brain/Head without Contrast IMPRESSION: Chronic involutional changes of the brain. Electronically Signed: Alexi Leslie MD at 14:51 EDT ,
--- NOTE | 2022-02-16 13:03 | EKG12_ITS ---
Test Reason : mental health Blood Pressure : / mmHG Vent. Rate : 059 BPM Atrial Rate : 059 BPM P-R Int : 192 ms QRS Dur : 088 ms QT Int : 406 ms P-R-T Axes : 077 064 083 degrees QTc Int : 401 ms Sinus bradycardia Otherwise normal ECG Confirmed by RALPH OSWALD, SHEYLA ([id number]), sound editor MAXIMO JEAN ([id number]) on 02/18/2022 9:35:50 AM Referred By: Confirmed By:SHEYLA ROSAS MD
--- NOTE | 2022-02-16 13:03 | RAD_ITS ---
STUDY: X-RAY CHEST REASON FOR EXAM: Female, 71 years old. Medical clearance TECHNIQUE: Single AP portable view of the chest. COMPARISON: Comparison is made with prior study dated 09/07/2015. FINDINGS: Hyperinflation. The lungs are clear. There is no demonstrated pleural abnormality. Normal size heart. Normal mediastinum and luma. Normal visualized pulmonary arteries. Normal visualized aortic arch and descending thoracic aorta. Normal visualized thoracic spine. Normal visualized ribs, clavicles, and shoulders. A spinal stimulator device is seen with the tip at the T7-T8 level. There is no demonstrated abnormality of the visualized soft tissue structures of the upper abdomen. RAD/Chest 1 View (Portable) IMPRESSION: Hyperinflation. The lungs are clear. Electronically Signed: Alexi Leslie MD at 14:52 EDT ,
--- NOTE | 2022-02-16 13:15 | EDS_ITS ---
HPI HPI - Psych History of Present Illness Chief Complaint: Mental Health Informant: patient Narrative Narrative: 71-year-old female comes to the emergency room chief complaint of head injury and hearing voices. She states that earlier this spring she developed C. difficile colitis after her surgery on antibiotics. Since that time she states that she has been hearing voices outside of her house. She states that is the voices of her neighbors. She notes that they are very angry stating they are going to get a gun and kill her. 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 She states that 2 days ago she discovered that nobody was in the bushes. The symptoms rarely happen during the day but usually happen at night. She states it makes her very anxious and she is home alone and so she goes to the basement and hides. She states it is very difficult for her to get any sleep. Last night she fell while running from the voices and hit her head on a dresser. She was very nervous this morning so she went to crisis and was sent here. She notes that she has never gotten lost driving or walking. She still doing her own finances. PFSH PFSH Medical History Anxiety Atrial fibrillation with rapid ventricular response (10/18/21) Back pain C. difficile colitis Chronic pain Essential hypertension Hyperlipidemia Hypothyroidism Leukocytosis Migraines Rheumatoid arthritis Smoker Home Medications clonazepam 2 mg tablet (Klonopin) 2 mg PO TID 06/12/13 [History Last Taken Unknown] pravastatin 40 mg tablet 40 mg PO DAILY 09/07/15 [History Last Taken Unknown] amitriptyline 50 mg tablet 50 mg PO QHS 01/02/22 [History Last Taken Unknown] cyclobenzaprine 10 mg tablet 10 mg PO BID PRN 01/02/22 [History Last Taken Unknown] duloxetine 60 mg capsule,delayed release 60 mg PO DAILY 01/02/22 [History Last Taken Unknown] levothyroxine 50 mcg tablet 50 mcg PO DAILY 01/02/22 [History Last Taken Unkno wn] morphine 15 mg tablet,extended release 15 mg PO Q12H PRN 01/02/22 [History Last Taken Unknown] sertraline 100 mg tablet 150 mg PO DAILY 01/02/22 [History Last Taken Unknown] Allergy/AdvReac Type Severity Reaction Status Date / Time amoxicillin [Amoxicillin] Allergy Hives Verified 01/07/22 12:35 Surgical History History of hand surgery History of tonsillectomy and adenoidectomy Spinal cord stimulator status Social History Smoking Status: Current every day smoker tobacco type: cigarettes ROS ROS ED Constitutional Constitutional ED: Denies chills or weight loss Eyes Eyes: Denies change in vision or diplopia ENT ENT ED: Denies ear pain, rhinorrhea or sore throat Cardiovascular Cardiovascular: Denies chest pain, orthopnea, palpitations or racing heartbeat Respiratory/Chest Respiratory/Chest: Denies cough, dyspnea or orthopnea Gastrointestinal Gastrointestinal: Reports nausea; Denies abdominal pain, diarrhea or vomiting Genitourinary Genitourinary ED: Denies dysuria, hematuria or urinary frequency Musculoskeletal Musculoskeletal: Denies arthralgias or myalgias Integumentary Denies abscess or rash Neurologic Neurologic: Reports headache(s); Denies weakness Psychiatric Psychiatric: Reports anxiety and other Details: Hallucinations ; Denies depression, suicidal ideation or suicidal thoughts Endocrine Endocrinology: Denies polydipsia, polyphagia or polyuria Allergic/Immunologic Allergic/Immunologic ED: Denies mouth swelling, tongue swelling or urticaria EXAM Physical Exam Const Vital Signs: 02/16/22 12:26 Temperature 97.7 F L Temperature Source Oral Pulse Rate 63 Respiratory Rate 13 Blood Pressure 151/84 H Blood Pressure Mean 106 Pulse Ox 95 Oxygen Delivery Method Room Air MDM MDM MDM Narrative Medical decision making narrative: Patient's toxicology work-up is positive for opiates which she is prescribed long-term. CT of the brain is negative for hemorrhage or mass. Chronic involutional changes noted. COVID is negative. Urinalysis is normal. TSH is normal. Interpretation of the chest x-ray is no acute process. Patient is medically cleared. 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 I believe the patient would benefit from inpatient [facility] psychiatric evaluation. We will be working with case management and crisis to get her placed. Lab Data Attestation: I reviewed the patient's lab results. Labs: Laboratory Results - last 24 hr 02/16/22 02/16/22 02/16/22 13:42 13:42 14:10 WBC 6.6 RBC 4.00 L Hgb 12.9 Hct 39.9 MCV 99.8 H MCH 32.3 H MCHC 32.3 RDW Std Deviation 44.7 H RDW Coeff of Deanne 12.2 Plt Count 246 MPV 10.3 Immature Gran % (Auto) 0.300 Neut % (Auto) 51.2 Lymph % (Auto) 33.7 [place] % (Auto) 8.2 Eos % (Auto) 5.2 H Baso % (Auto) 1.4 H Absolute Neuts (auto) 3.4 Absolute Lymphs (auto) 2.22 Nucleated RBC % 0 Sodium Potassium Chloride Carbon Dioxide Anion Gap BUN Creatinine Estim Creat Clear Calc Est GFR (MDRD) Af Amer Est GFR (MDRD) Non-Af BUN/Creatinine Ratio Glucose Calcium Total Bilirubin AST ALT Alkaline Phosphatase Total Protein Albumin Globulin Albumin/Globulin Ratio TSH Urine Color Straw Urine Clarity Clear Urine pH 7.0 Ur Specific [place] 1.005 Urine Protein Negative Urine Glucose (UA) Normal Urine Ketones Negative Urine Occult Blood Negative Urine Nitrite Negative Urine Bilirubin Negative Urine Urobilinogen Normal Ur Leukocyte Esterase Negative Urine RBC 0 SEEN Urine WBC 0 SEEN Ur Squamous Epith Cells 0 SEEN Urine Bacteria 0 SEEN Urine Mucus 0 SEEN Urine Opiates Screen POSITIVE H Urine Methadone Screen NEGATIVE Ur Barbiturates Screen NEGATIVE Ur Phencyclidine Scrn NEGATIVE Ur Amphetamines Screen NEGATIVE MDMA (Ecstasy) Screen NEGATIVE U Benzodiazepines Scrn NEGATIVE Urine Cocaine Screen NEGATIVE U Cannabinoids Screen NEGATIVE Ur Drug Screen Comment Ethyl Alcohol 02/16/22 02/16/22 14:10 14:10 WBC RBC Hgb Hct MCV MCH MCHC RDW Std Deviation RDW Coeff of Deanne Plt Count MPV Immature Gran % (Auto) Neut % (Auto) Lymph % (Auto) [place] % (Auto) Eos % (Auto) Baso % (Auto) Absolute Neuts (auto) Absolute Lymphs (auto) Nucleated RBC % Sodium 139 Potassium 4.4 Chloride 105 Carbon Dioxide 28.0 Anion Gap 6 BUN 21 H Creatinine 1.41 H Estim Creat Clear Calc 29.49 Est GFR (MDRD) Af Amer 47 L Est GFR (MDRD) Non-Af 39 L BUN/Creatinine Ratio 14.9 Glucose 85 Calcium 9.0 Total Bilirubin 0.30 AST 22 ALT 19 Alkaline Phosphatase 65 Total Protein 6.7 Albumin 3.4 Globulin 3.3 Albumin/Globulin Ratio 1.0 TSH 3.43 Urine Color Urine Clarity Urine pH Ur Specific [place] Urine Protein Urine Glucose (UA) Urine Ketones Urine Occult Blood Urine Nitrite Urine Bilirubin Urine Urobilinogen Ur Leukocyte Esterase Urine RBC Urine WBC Ur Squamous Epith Cells Urine Bacteria Urine Mucus Urine Opiates Screen Urine Methadone Screen Ur Barbiturates Screen Ur Phencyclidine Scrn Ur Amphetamines Screen MDMA (Ecstasy) Screen U Benzodiazepines Scrn Urine Cocaine Screen U Cannabinoids Screen Ur Drug Screen Comment Ethyl Alcohol < 3.0 Radiography Diagnostic Testing: Clinical Impression(s) from Imaging Studies Brain CT 02/16/22 13:03 IMPRESSION: Chronic involutional changes of the brain. Electronically Signed: Alexi Leslie MD at 14:51 EDT , Chest X-Ray 02/16/22 13:03 IMPRESSION: Hyperinflation. The lungs are clear. Electronically Signed: Alexi Leslie MD at 14:52 EDT , EKG Initial EKG: Attestation: I personally reviewed and interpreted this EKG as follows: Comments: Sinus bradycardia with a ventricular rate of 59 bpm. Discharge Plan Triage Chief Complaint: Mental Health ED Provider: Chau Horn Dx/Rx/DC Orders Clinical Impression: Hallucinations, Anxiety Prescriptions: No Action cyclobenzaprine 10 mg tablet 10 mg PO BID PRN (Reason: Cramps) duloxetine 60 mg capsule,delayed release(DR/EC) 60 mg PO DAILY levothyroxine 50 mcg tablet 50 mcg PO DAILY morphine 15 mg tablet extended release 15 mg PO Q12H PRN (Reason: Pain) Label Comments: TAKE 1 TABLET BY MOUTH EVERY 12 HOURS FOR 30 DAYS NEEDED FOR PAIN clonazepam [Klonopin] 2 MG tablet 2 mg PO TID amitriptyline 50 mg tablet 50 mg PO QHS sertraline 100 mg tablet 150 mg PO DAILY pravastatin 40 MG tablet 40 mg PO DAILY Primary Care Provider: Maxwell Mabry Referrals: Maxwell Mabry DO [Primary Care Provider] - Disposition Disposition: Psychiatric Hospital or Unit
[2022-02-16] MEDS: Acetaminophen 325 MG Tablet 650 MG PO (13:32)
[2022-02-16] MEDS: Ondansetron ODT 4 MG Tablet PO (13:32)
--- NOTE | 2022-02-16 13:43 | CM.ED ---
SW Note SW spoke to MD. MD indicated that patient needs inpatient psych. RENE spoke to Susan. She has completed the assessment and will fax it to this curriculum writer. Susan is going to a hospital for assessment. [facility] Susan voiced no preference regarding placement settings. RENE called [facility]. They have [facility] beds SW called [facility]. They have [facility] psych beds. Ekaterina LAWRENCE
[2022-02-16 13:51] LABS: Bacteria 0 SEEN /hpf (None Seen); Mucous, Urine 0 SEEN /hpf (<or=2+); Red Blood Cells-Urine 0 SEEN /hpf (0-5); Squamous Epithelial Cells - UA 0 SEEN /hpf (5-10); White Blood Cells 0 SEEN /hpf (0-5)
[2022-02-16 13:54] LABS: Color, Urine Straw (Yellow); Glucose, Dipstick Normal (Normal); Ketone-Dipstick Negative (Negative); Leukocyte Esterase-Dipstick Negative /ul (Negative); Nitrite-Dipstick Negative (Negative); Occult Blood-Urine Negative /ul (Negative); Protein-Dipstick Negative (Negative); Specific Gravity, Urine 1.005 (1.002-1.030); Urine Bilirubin Dipstick Negative (Negative); Urine Clarity Clear (Clear); Urine Urobilinogen Normal (Normal)
--- NOTE | 2022-02-16 13:55 | CM.ED ---
SW reviewed [facility] Legal screen and no record of advanced Directives. However, patient is in the ED under a pink slip [facility] by [facility]. Thus, it is not appropriate at this time to discuss patient's legal advanced directives standing.
--- NOTE | 2022-02-16 13:56 | CM.ED ---
RENE reviewed [facility] Legal and noted no advanced Directives on file. However, patient is in the ED on a pink slip completed by Susan Chau Health Officer thus it is not appropriate for the legal discussion of advanced directives at this time. Ekaterina LAWRENCE
[2022-02-16 14:14] LABS: Amphetamine Urine VISTA NEGATIVE (<1000 ng/mL); Barbiturate Urine VISTA NEGATIVE (< 200 ng/mL); Benzodiazepine Urine VISTA NEGATIVE (< 200 ng/mL); Cocaine Urine VISTA NEGATIVE (< 300 ng/mL); Ecstacy Urine VISTA NEGATIVE (< 500 ng/mL); Methadone Urine VISTA NEGATIVE (< 300 ng/mL); PCP Urine VISTA NEGATIVE (< 25 ng/mL); THC Urine VISTA NEGATIVE (< 50 ng/mL); Vista UDS pH Range 6
[2022-02-16 14:16] LABS: Absolute Lymphocyte Count 2.22 X10^3/uL (0.83-4.51); Absolute Neutrophil Count 3.4 X10^3/uL (2.0-7.7); Basophil# 0.09 X10^3/uL; Basophil% 1.4 % (0-1); Eosinophil# 0.34 X10^3/uL; Eosinophils% 5.2 % (0-5); Hematocrit 39.9 % (37-47); Hemoglobin 12.9 g/dL (12.0-15.0); Lymphocyte # 2.22 X10^3/ul (0.83-4.51); Lymphocyte % 33.7 % (19-41); Mean Corp Hgb Conc 32.3 g/dL (32-36); Mean Corpuscular Hgb 32.3 pg (27.0-32.0); Mean Corpuscular Volume 99.8 fL (81-99); Mean Platelet Vol. 10.3 fl (6.2-12.0); Monocyte# 0.54 X10^3/uL; Monocyte% 8.2 % (0-10); NRBC Flagged by Analyzer 0 % (0-5); Neutrophil # 3.37 X10^3/uL (2.7-7.7); Neutrophil % 51.2 % (47-70); Platelet Count 246 K/mm3 (150-450); RBC Distribution Width CV 12.2 % (11.6-14.6); RBC Distribution Width SD 44.7 fl (35.1-43.9); White Blood Count 6.6 K/mm3 (4.4-11.0)
[2022-02-16 14:41] LABS: Alcohol, Blood (Medical)-Serum < 3.0 mg/dL
[2022-02-16 14:44] LABS: AST(SGOT) 22 U/L (15-37); Alanine Aminotransfer ALT/SGPT 19 U/L (13-56); Albumin, Serum 3.4 g/dL (3.2-5.0); Alkaline Phosphatase 65 U/L (45-117); Anion Gap 6 (5-15); BUN 21 mg/dL (7-18); BUN/Creat Ratio 14.9 RATIO (10-20); Chloride 105 mmol/L (98-107); Creatinine, Serum 1.41 mg/dL (0.55-1.02); EST Glomerular Filtration Rate 39 mL/min (>60); Est Glom Filt Rate - Afr Amer 47 mL/min (>60); Estimated Creatinine Clearance 29.49 ml/min; Globulin 3.3 g/dL (2.2-4.2); Glucose 85 mg/dL (74-106); Potassium 4.4 mmol/L (3.5-5.1); Protein, Total 6.7 g/dL (6.4-8.2); Sodium Level 139 mmol/L (136-145); Thyroid Stim Hormone (TSH) 3.43 uIU/mL (0.358-3.74)
[2022-02-16] MEDS: Haloperidol Lactate 5 MG/ML Vial IM (16:00)
--- NOTE | 2022-02-16 16:00 | CM.ED ---
RENE spoke to patient and advised that she is going to go to a psychiatric hospital. Patient said that she had gone to one previously and felt it was not helpful. RENE explained that patient has to go to a psych hospitalization. Staff came to take patient to the imaging and patient requested to walk independently to imaging. RENE received call from Josh at [facility] requesting a call back. RENE called Rosalina and she inquired if patient is able to do ADL's and this contract technical writer said that this contract technical writer had observed her walking to the restroom and imaging without any support. Rosalina asked if patient has any active symptoms of Cdiff. RENE reviewed chart and no notations of Cdiff were in the charge. RENE spoke to SHADIA Rodriguez who stated that patient has no active symptoms of cdiff to her knowledge. Rosalina said that patient could be accepted. Accepting MD is Dr. Avitia. RN to RN is [phone]. Patient is going to [facility] unit. GIANNA Hanson, will call for transport. Staff will update patient as patient is upset at this contract technical writer. RENE called [facility] and left voice mail that placement had been secured for patient. RENE called [facility] and left voice mail that placement had been secured for patient. RENE called Susan at [facility] and updated that patient was accepted at [facility] with accepting MD Avitia. No additional information requested from Crisis. Plan: [facility] Ekaterina LAWRENCE
--- NOTE | 2022-02-16 16:11 | NURSING ---
SPOKE WITH [facility] FROM [facility], ETA OF 2/3 HOURS AT THIS TIME TO GET PT TO [facility]
[2022-02-16 16:59] VITALS: BP 107/63; PULSE 63; RESP 12; O2SAT 100; O2SAT 89
--- NOTE | 2022-02-16 17:14 | ED.RN ---
THIS RN CALLED REPORT TO [facility]. REPORT TAKEN BY SHADIA KANG.
[2022-02-16 17:16] VITALS: BP 118/59; PULSE 61; RESP 13; O2SAT 96
[2022-02-16 18:06] VITALS: BP 134/64; PULSE 61; RESP 14; O2SAT 91
--- NOTE | 2022-02-16 18:24 | ED.RN ---
NEW ETA 2030 WILL TRY TO [facility]
[2022-02-16 18:44] VITALS: O2SAT 96
[2022-02-16 20:15] VITALS: BP 155/71; PULSE 74; RESP 17
== END 2022-02-16 20:50 ==
PROVIDERS: Emergency Medicine; Emergency Provider Emergency Medicine; PCP Preventive Medicine Occupational Medicine; Visit Provider Emergency Medicine
DX: R44.0 Auditory hallucinations (principal); F41.9 Anxiety disorder, unspecified; I10 Essential (primary) hypertension; E78.5 Hyperlipidemia, unspecified; E03.9 Hypothyroidism, unspecified; F17.210 Nicotine dependence, cigarettes, uncomplicated; Z79.891 Long term (current) use of opiate analgesic; Z79.899 Other long term (current) drug therapy
CPT/HCPCS: 36415; 70450; 71045; 80053; 80307; 81001; 82077; 84443; 85025; 87811; 93005; 96374; 99285; A4216

== ENCOUNTER 2022-02-24 19:36 | Emergency (ER) | payer MEDICARE, OTHER, SELFPAY ==
[2022-02-24 19:38] VITALS: BP 148/74; PULSE 89; RESP 20; TEMP 36.6; BMI 20.1
[2022-02-24 20:40] VITALS: BP 154/90
--- NOTE | 2022-02-24 21:24 | CT_ITS ---
STUDY: CT CERVICAL SPINE WITHOUT CONTRAST REASON FOR EXAM: Female, 71 years old. head injury RADIATION DOSAGE (If Supplied By Facility): CTDIvol = ( 12.09 ) mGy, DLP = ( 227.22 ) mGycm TECHNIQUE: High resolution transaxial imaging was performed without contrast material. Sagittal and coronal images were reconstructed. Individualized dose optimization techniques were used for this CT. COMPARISON: None FINDINGS: ALIGNMENT: Normal. VERTEBRAL BODIES: No fracture or acute abnormality. DISC SPACES: Normal. POSTERIOR ELEMENTS: Normal. SPINAL CANAL: Normal. PARASPINAL SOFT TISSUES: Normal. LUNG APICES: Visualized portions normal. OTHER: None. CT/Spine Cervical without Contras IMPRESSION: No acute fracture or subluxation. Electronically Signed: Miguel Cook MD at 22:51 EDT ,
--- NOTE | 2022-02-24 21:24 | EKG12_ITS ---
Test Reason : DYSRHYTHMIA Blood Pressure : / mmHG Vent. Rate : 083 BPM Atrial Rate : 083 BPM P-R Int : 146 ms QRS Dur : 098 ms QT Int : 364 ms P-R-T Axes : 082 071 071 degrees QTc Int : 427 ms Normal sinus rhythm with sinus arrhythmia Normal ECG Confirmed by RALPH OSWALD, SHEYLA ([id number]), editor newspaper MAXIMO JEAN ([id number]) on 02/26/2022 8:13:08 AM Referred By: TL Confirmed By:SHEYLA ROSAS MD
--- NOTE | 2022-02-24 21:24 | CT_ITS ---
STUDY: CT BRAIN WITHOUT CONTRAST REASON FOR EXAM: Female, 71 years old. head injury RADIATION DOSAGE (If Supplied By Facility): CTDIvol = ( 44.99 ) mGy, DLP = ( 812.98 ) mGycm TECHNIQUE: Transaxial CT imaging of the brain was performed without administration of intravenous contrast material. Individualized dose optimization techniques were used for this CT. COMPARISON: CT brain 02/16/2022 FINDINGS: BRAIN: Normal valencia/white matter differentiation. VENTRICLES: No hydrocephalus. Bilateral periventricular hypoattenuation, nonspecific however likely represents chronic microvascular ischemic changes. EXTRA-AXIAL SPACES: No hemorrhages, fluid collections, or masses. CALVARIUM/SKULL BASE: Normal. FACE/SINUSES: Visualized portions normal. SOFT TISSUES: Posterior scalp soft tissue swelling and trace soft tissue gas consistent with laceration.. OTHER: None. CONCLUSION: No intracranial hemorrhage or depressed calvarial fracture. Electronically Signed: Miguel Cook MD at 22:44 EDT , CT/Brain/Head without Contrast IMPRESSION: undefined
--- NOTE | 2022-02-24 21:26 | EDS_ITS ---
HPI History of Present Illness Chief Complaint: Alt LOC Informant: patient Narrative Narrative: Patient brought in by EMS from home for concern for increased confusion. Well check was called on the patient. Apparently reported a fall 2 days ago had noted scalp lack. Report per EMS more confused. Patient takes aspirin at home no other anticoagulation medicines. Tetanus unknown. Patient states she has been having productive sputum for the past week. No fevers. No sick contacts. COVID vaccinated. Denies vomiting or diarrhea. Denies any urinary symptoms. Denies abdominal pain. Patient lives alone. PFSH PFSH Medical History Anxiety Atrial fibrillation with rapid ventricular response (10/18/21) Back pain C. difficile colitis Chronic pain Essential hypertension Hyperlipidemia Hypothyroidism Leukocytosis Migraines Rheumatoid arthritis Smoker Home Medications clonazepam 2 mg tablet (Klonopin) 2 mg PO TID 06/12/13 [History Last Taken Unknown] pravastatin 40 mg tablet 40 mg PO DAILY 09/07/15 [History Last Taken Unknown] amitriptyline 50 mg tablet 50 mg PO QHS 01/02/22 [History Last Taken Unknown] cyclobenzaprine 10 mg tablet 10 mg PO BID PRN Cramps 01/02/22 [History Last Taken Unknown] duloxetine 60 mg capsule,delayed release 60 mg PO DAILY 01/02/22 [History Last Taken Unknown] levothyroxine 50 mcg tablet 50 mcg PO DAILY 01/02/22 [History Last Taken Unknown] morphine 15 mg tablet,extended release 15 mg PO Q12H PRN Pain 01/02/22 [History Last Taken Unknown] sertraline 100 mg tablet 150 mg PO DAILY 01/02/22 [History Last Taken Unknown] Allergy/AdvReac Type Severity Reaction Status Date / Time amoxicillin [Amoxicillin] Allergy Hives Verified 02/24/22 19:42 Surgical History History of hand surgery History of tonsillectomy and adenoidectomy Spinal cord stimulator status Social History Smoking Status: Current every day smoker tobacco type: cigarettes ROS ROS ED Constitutional Constitutional ED: Denies chills, fever(s) or sweats Eyes Eyes: Denies change in vision ENT ENT ED: Denies dysphagia or sore throat Cardiovascular Cardiovascular: Denies chest pain, leg edema, palpitations or racing heartbeat Respiratory/Chest Respiratory/Chest: Reports cough; Denies dyspnea or dyspnea on exertion Gastrointestinal Gastrointestinal: Denies abdominal pain, diarrhea, nausea or vomiting Genitourinary Genitourinary ED: Denies dysuria, hematuria or urinary frequency Musculoskeletal Musculoskeletal: Denies back pain, extremity pain or neck pain Integumentary Denies rash or wounds Neurologic Neurologic: Denies headache(s), paresthesias or weakness EXAM Physical Exam Const Vital Signs: 02/24/22 19:38 02/24/22 20:40 02/24/22 21:40 Temperature 97.9 F Temperature Source Temporal Pulse Rate 89 Respiratory Rate 20 H Blood Pressure 148/74 H 154/90 H 168/92 H Blood Pressure Mean 98 111 117 Pulse Ox Oxygen Delivery Method 02/24/22 22:40 02/24/22 23:51 02/25/22 00:47 Temperature Temperature Source Pulse Rate 80 77 86 Respiratory Rate 16 24 H 11 L Blood Pressure 172/95 H 147/97 H 160/79 H Blood Pressure Mean 120 113 106 Pulse Ox 95 94 98 Oxygen Delivery Method Room Air Room Air Room Air 02/25/22 00:50 Temperature Temperature Source Pulse Rate 80 Respiratory Rate 16 Blood Pressure 137/89 H Blood Pressure Mean Pulse Ox 97 Oxygen Delivery Method Positive well nourished and well developed Constitutional Narrative: Patient asleep and awaken with answer questions appropriately, alert and orient x3. General Appearance ED: well developed and NAD HEENT Reports TM's clear and moist mucous membranes HEENT Narrative: Posterior scalp abrasion of the crown, dried blood. There is no active bleeding. normocephalic Tympanic Membrane ED: Yes TM's clear Eyes PERRL, EOMs intact bilaterally and conjunctivae normal General Eye ED: Yes normal appearance of both eyes Neck no lymphadenopathy and supple General: Negative for tenderness Chest Wall inspection of chest normal and palpation of chest normal Chest: Negative for tenderness Resp normal respiratory effort and normal air movement Effort and Inspection: symmetric chest movement; Negative for respiratory distress Cardio regular rate, regular rhythm and no murmurs Peripheral Pulses: pulses 2+ throughout GI normal to inspection, nondistended, normoactive bowel sounds and non-tender Palpation: Negative for guarding or rebound tenderness present Back/Spine no CVA tenderness and no thoracic nor lumbar tenderness Extremity normal to inspection General Extremety ED: Negative for edema or tenderness General Extremity: Negative for edema Neuro oriented x3, CN's II-XII intact bilaterally and no sensory deficits noted Sensorium / Orientation: awake and alert Skin Skin Narrative: See above MDM MDM MDM Narrative Medical decision making narrative: Patient alert and oriented x3 on my evaluation. Discussed with nursing will check on the patient reported fall head injury 2 days ago. Reports aspirin therapy. Trauma scans head and neck obtained negative. COVID-negative. Labs White count of 15 hemoglobin 13.9 platelets 260. Her tetanus was updated in the ED. Urine notes leukocytes however no other findings were concerning of infection. Chest x-ray reviewed by myself and read by radiology shows no acute process. Creatinine 2.23 previous creatinine of 1.4 however she has had fluctuating creatinine as high as 2.8 in the past. She states history of CKD followed by nephrology and cannot recall the name at this time. I did add CPK which returned normal. She was given a liter of fluids. COVID testing returned negative. She remains ANO x3. Close evaluation of the scalp after cleaning noted 1.5 cm full-thickness laceration with no active bleeding. This was thoroughly washed with hydroperoxide, 2 arabella were placed. She is able ambulate in the ED. She is discharged with follow-up with her PCP with return precautions. All questions were answered. Procedure note: Scalp laceration. Normal sterile conditions. Wound was cleansed copiously with hydrogen peroxide, wounds noted to be full-thickness laceration with no active bleeding. 2 arabella placed with good approximation. Patient Toller procedure well. Lab Data Attestation: I reviewed the patient's lab results. Labs: Laboratory Results - last 24 hr 02/24/22 02/24/22 02/24/22 21:36 21:45 21:45 WBC 15.4 H RBC 4.31 Hgb 13.9 Hct 42.4 MCV 98.4 MCH 32.3 H MCHC 32.8 RDW Std Deviation 44.0 H RDW Coeff of Deanne 12.0 Plt Count 260 MPV 10.6 Immature Gran % (Auto) 0.400 Neut % (Auto) 71.8 H Lymph % (Auto) 16.8 L [place] % (Auto) 6.1 Eos % (Auto) 4.4 Baso % (Auto) 0.5 Absolute Neuts (auto) 11.1 H Absolute Lymphs (auto) 2.59 Nucleated RBC % 0 PT 12.7 INR 1.0 APTT 28.7 Sodium Potassium Chloride Carbon Dioxide Anion Gap BUN Creatinine Estim Creat Clear Calc Est GFR (MDRD) Af Amer Est GFR (MDRD) Non-Af BUN/Creatinine Ratio Glucose Calcium Total Bilirubin AST ALT Alkaline Phosphatase Total Creatine Kinase Total Protein Albumin Globulin Albumin/Globulin Ratio Urine Color Straw Urine Clarity Clear Urine pH 6.0 Ur Specific [place] 1.015 Urine Protein Negative Urine Glucose (UA) Normal Urine Ketones Negative Urine Occult Blood Negative Urine Nitrite Negative Urine Bilirubin Negative Urine Urobilinogen Normal Ur Leukocyte Esterase 25 H Urine RBC 0 SEEN Urine WBC 0-5 SEEN Ur Squamous Epith Cells 0-5 SEEN Urine Bacteria RARE Urine Mucus 0 SEEN 02/24/22 02/24/22 21:45 22:30 WBC RBC Hgb Hct MCV MCH MCHC RDW Std Deviation RDW Coeff of Deanne Plt Count MPV Immature Gran % (Auto) Neut % (Auto) Lymph % (Auto) [place] % (Auto) Eos % (Auto) Baso % (Auto) Absolute Neuts (auto) Absolute Lymphs (auto) Nucleated RBC % PT INR APTT Sodium 136 Potassium 4.5 Chloride 102 Carbon Dioxide 25.0 Anion Gap 9 BUN 41 H Creatinine 2.23 H Estim Creat Clear Calc 18.58 Est GFR (MDRD) Af Amer 28 L Est GFR (MDRD) Non-Af 23 L BUN/Creatinine Ratio 18.4 Glucose 102 Calcium 8.9 Total Bilirubin 0.40 AST 22 ALT 21 Alkaline Phosphatase 69 Total Creatine Kinase 170 Total Protein 7.2 Albumin 3.8 Globulin 3.4 Albumin/Globulin Ratio 1.1 Urine Color Urine Clarity Urine pH Ur Specific [place] Urine Protein Urine Glucose (UA) Urine Ketones Urine Occult Blood Urine Nitrite Urine Bilirubin Urine Urobilinogen Ur Leukocyte Esterase Urine RBC Urine WBC Ur Squamous Epith Cells Urine Bacteria Urine Mucus Radiography Diagnostic Testing: Clinical Impression(s) from Imaging Studies Brain CT 02/24/22 21:24 IMPRESSION: undefined Cervical Spine CT 02/24/22 21:24 IMPRESSION: No acute fracture or subluxation. Electronically Signed: Miguel Cook MD at 22:51 EDT Reading Location ID and State: [address] [place] [address] Tel , Service support , Chest X-Ray 02/24/22 22:19 IMPRESSION: No acute cardiopulmonary disease. Electronically Signed: Miguel Cook MD at 22:53 EDT , EKG Initial EKG: Attestation: I personally reviewed and interpreted this EKG as follows: Comments: Sinus rate of 83, no ST or T wave changes. Discharge Plan Triage Chief Complaint: Alt LOC ED Provider: Torito Hunter Dx/Rx/DC Orders Clinical Impression: Laceration of scalp, CHI (closed head injury), Tetanus toxoid vaccination administered at current visit, CKD (chronic kidney disease), Transient confusion Instructions: CKD Dc, ED Head Injury (Adult), ED Laceration Scalp Stitches or Arabella Prescriptions: No Action cyclobenzaprine 10 mg tablet 10 mg PO BID PRN (Reason: Cramps) duloxetine 60 mg capsule,delayed release(DR/EC) 60 mg PO DAILY levothyroxine 50 mcg tablet 50 mcg PO DAILY morphine 15 mg tablet extended release 15 mg PO Q12H PRN (Reason: Pain) Label Comments: TAKE 1 TABLET BY MOUTH EVERY 12 HOURS FOR 30 DAYS NEEDED FOR PAIN clonazepam [Klonopin] 2 MG tablet 2 mg PO TID amitriptyline 50 mg tablet 50 mg PO QHS sertraline 100 mg tablet 150 mg PO DAILY pravastatin 40 MG tablet 40 mg PO DAILY Primary Care Provider: Maxwell Mabry Referrals: Maxwell Mabry DO [Primary Care Provider] - 3-5 Days Activity Restrictions/Additional Instructions: 2 arabella placed on her scalp. Follow-up with your doctor. [place] to be removed in 10 days. Disposition Disposition: Home, Self Care
[2022-02-24 21:40] VITALS: BP 168/92
[2022-02-24 21:46] LABS: Mucous, Urine 0 SEEN /hpf (<or=2+); Red Blood Cells-Urine 0 SEEN /hpf (0-5)
[2022-02-24 21:51] LABS: Color, Urine Straw (Yellow); Glucose, Dipstick Normal (Normal); Ketone-Dipstick Negative (Negative); Leukocyte Esterase-Dipstick 25 /ul (Negative); Nitrite-Dipstick Negative (Negative); Occult Blood-Urine Negative /ul (Negative); Protein-Dipstick Negative (Negative); Specific Gravity, Urine 1.015 (1.002-1.030); Urine Bilirubin Dipstick Negative (Negative); Urine Clarity Clear (Clear); Urine Urobilinogen Normal (Normal)
[2022-02-24 21:52] LABS: Absolute Lymphocyte Count 2.59 X10^3/uL (0.83-4.51); Absolute Neutrophil Count 11.1 X10^3/uL (2.0-7.7); Basophil# 0.08 X10^3/uL; Basophil% 0.5 % (0-1); Eosinophil# 0.68 X10^3/uL; Eosinophils% 4.4 % (0-5); Hematocrit 42.4 % (37-47); Hemoglobin 13.9 g/dL (12.0-15.0); Lymphocyte # 2.59 X10^3/ul (0.83-4.51); Lymphocyte % 16.8 % (19-41); Mean Corp Hgb Conc 32.8 g/dL (32-36); Mean Corpuscular Hgb 32.3 pg (27.0-32.0); Mean Corpuscular Volume 98.4 fL (81-99); Mean Platelet Vol. 10.6 fl (6.2-12.0); Monocyte# 0.94 X10^3/uL; Monocyte% 6.1 % (0-10); NRBC Flagged by Analyzer 0 % (0-5); Neutrophil # 11.05 X10^3/uL (2.7-7.7); Neutrophil % 71.8 % (47-70); Platelet Count 260 K/mm3 (150-450); Red Blood Count 4.31 M/mm3 (4.2-5.4); White Blood Count 15.4 K/mm3 (4.4-11.0)
[2022-02-24 22:03] LABS: Prothrombin Time (Protime)PT. 12.7 SECONDS (11.7-14.9)
[2022-02-24 22:04] LABS: Partial Thromboplast Time 28.7 Seconds (24.1-36.2)
[2022-02-24 22:09] LABS: ALB/GLOB Ratio 1.1 RATIO (0.9-2.4); AST(SGOT) 22 U/L (15-37); Alanine Aminotransfer ALT/SGPT 21 U/L (13-56); Albumin, Serum 3.8 g/dL (3.2-5.0); Alkaline Phosphatase 69 U/L (45-117); Anion Gap 9 (5-15); BUN 41 mg/dL (7-18); BUN/Creat Ratio 18.4 RATIO (10-20); Calcium,Total 8.9 mg/dL (8.5-10.1); Chloride 102 mmol/L (98-107); Creatinine, Serum 2.23 mg/dL (0.55-1.02); EST Glomerular Filtration Rate 23 mL/min (>60); Est Glom Filt Rate - Afr Amer 28 mL/min (>60); Estimated Creatinine Clearance 18.58 ml/min; Globulin 3.4 g/dL (2.2-4.2); Glucose 102 mg/dL (74-106); Potassium 4.5 mmol/L (3.5-5.1); Protein, Total 7.2 g/dL (6.4-8.2); Sodium Level 136 mmol/L (136-145)
[2022-02-24 22:13] LABS: Bacteria RARE /hpf (None Seen); Squamous Epithelial Cells - UA 0-5 SEEN /hpf (5-10); White Blood Cells 0-5 SEEN /hpf (0-5)
--- NOTE | 2022-02-24 22:19 | RAD_ITS ---
INDICATION: cough EXAMINATION/TECHNIQUE: X-RAY - XR Chest 2 Views COMPARISON: 02/16/2022 FINDINGS: LINES/DEVICES: None. LUNGS: No consolidation, edema or effusion. No pneumothorax. MEDIASTINUM AND CARDIOVASCULAR STRUCTURES: Cardiac silhouette not enlarged. Central airways and mediastinal contour are unremarkable. BONES AND SOFT TISSUES: Intrathecal electrodes, similar compared to the prior.. RAD/Chest PA and Lateral IMPRESSION: No acute cardiopulmonary disease. Electronically Signed: Miguel Cook MD at 22:53 EDT ,
[2022-02-24 22:40] VITALS: BP 172/95; PULSE 80; RESP 16; O2SAT 95
[2022-02-24] MEDS: Diphth,Pertuss(Acell),Tet Vac 0.5 ML Vial IM (22:59)
[2022-02-24 23:51] VITALS: BP 147/97; PULSE 77; RESP 24; O2SAT 94
[2022-02-24] MEDS: 0.9% Normal Saline 1,000 ML 999 ML IV (23:51)
[2022-02-25 00:21] LABS: CPK Total, Creatine Kinase 170 U/L (26-192)
[2022-02-25 00:47] VITALS: BP 160/79; PULSE 86; RESP 11; O2SAT 98
[2022-02-25 00:50] VITALS: BP 137/89; PULSE 80; RESP 16; O2SAT 97
[2022-02-25] MEDS: Acetaminophen 500 MG Tablet 1000 MG PO (01:11)
== END 2022-02-25 02:57 | disposition home or self-care (01) ==
PROVIDERS: Emergency Provider Emergency Medicine; PCP Preventive Medicine Occupational Medicine; Visit Provider Emergency Medicine
DX: S01.01XA Laceration without foreign body of scalp, initial encounter (principal); M06.9 Rheumatoid arthritis, unspecified; I48.91 Unspecified atrial fibrillation; W19.XXXA Unspecified fall, initial encounter; F41.9 Anxiety disorder, unspecified; G89.29 Other chronic pain; I12.9 Hypertensive chronic kidney disease with stage 1 through stage 4 chronic kidney disease, or unspecified chronic kidney disease; E03.9 Hypothyroidism, unspecified; E78.5 Hyperlipidemia, unspecified; Z79.899 Other long term (current) drug therapy; F17.210 Nicotine dependence, cigarettes, uncomplicated; N18.9 Chronic kidney disease, unspecified; R41.0 Disorientation, unspecified; Z23 Encounter for immunization
CPT/HCPCS: 12001; 70450; 71046; 72125; 80053; 81001; 82550; 85025; 85610; 85730; 87811; 90715; 93005; 96360; 99285